=== PATIENT | male | born 1950 | race African-American/Black ===

== ENCOUNTER 2020-01-30 07:37 | Outpatient (REF) | payer MEDICARE, SELFPAY ==
[2020-01-30 10:32] LABS: Basophils Percent Auto 0.5 % (0-2); Eosinophils Percent Auto 0.9 % (0-4); Hematocrit 40.6 % (42-52); Hemoglobin 12.9 g/dl (14.0-18.0); Imm Gran Abs Auto 0.01 X10*3/uL (0.00-0.03); Imm Gran Pct Auto 0.2 % (0.0-0.4); Lymphocytes Absolute Auto 2.7 X10*3/uL (1.2-4.9); Lymphocytes Percent Auto 62.8 % (20-40); MANUAL DIFF FLAG SCAN; Mean Corpuscular HGB Conc 31.8 g/dl (31.0-36.0); Mean Corpuscular Hemoglobin 29.9 pg (27.0-33.0); Mean Corpuscular Volume 94.2 fL (80-98); Mean Platelet Volume 10.9 fL (9.4-12.4); Monocytes Absolute Auto 0.5 X10*3/uL (0.1-1.2); Monocytes Percent Auto 12.6 % (2-11); Platelet Count 199 X10*3/uL (160-400); Red Blood Count 4.31 X10*6/uL (4.60-5.80); Red Cell Distribution Width 13.5 % (11.0-16.0); SCAN SMEAR FLAG 1; White Blood Count 4.3 X10*3/uL (4.8-10.8)
[2020-01-30 11:00] LABS: SLIDE REVIEW VERIFIED
[2020-01-30 11:02] LABS: Alanine Aminotransferase 62 U/L (0-40); Albumin Level 3.9 g/dL (3.5-5.0); Alkaline Phosphatase 125 U/L (39-117); Anion Gap 12 (12-20); Aspartate Amino Transferase 47 U/L (5-37); Bilirubin Total 0.8 mg/dL (0.0-1.0); Blood Urea Nitrogen 18 mg/dL (9-16); Carbon Dioxide 28 mmol/L (22-29); Chloride 106 mmol/L (96-108); Cholesterol 135 mg/dL; Estimated Glomerular Filt Rate > 60; Glucose Fasting 75 mg/dL (60-99); HDL Cholesterol 47 mg/dL; LDL Cholesterol Calculated 71 mg/dl; Potassium 4.6 mmol/l (3.3-5.1); Sodium 141 mmol/L (135-145); Triglycerides 88 mg/dL
[2020-01-30 11:13] LABS: TSH reflex Free T4 2.24 mIU/mL (0.32-4.0)
[2020-01-30 11:46] LABS: Microalbum/Creatinine Ratio Ur 62.8 ug/mg cr
== END 2020-01-30 07:38 | disposition home or self-care (01) ==
LOC: HO.10HDL 07:37
PROVIDERS: Visit Provider Physician Assistant
DX: E11.9 Type 2 diabetes mellitus without complications (principal)
CPT/HCPCS: 36415; 80053; 80061; 82043; 84443; 85025

== ENCOUNTER 2020-10-20 08:55 | Outpatient (REF) | payer MEDICARE, SELFPAY ==
[2020-10-20 10:22] LABS: Hematocrit 39.1 % (42-52); Hemoglobin 12.6 g/dl (14.0-18.0); Mean Corpuscular HGB Conc 32.2 g/dl (31.0-36.0); Mean Corpuscular Hemoglobin 30.2 pg (27.0-33.0); Mean Corpuscular Volume 93.8 fL (80-98); Mean Platelet Volume 10.3 fL (9.4-12.4); Platelet Count 199 X10*3/uL (160-400); Red Blood Count 4.17 X10*6/uL (4.60-5.80); Red Cell Distribution Width 13.3 % (11.0-16.0); White Blood Count 4.6 X10*3/uL (4.8-10.8)
[2020-10-20 10:35] LABS: Alanine Aminotransferase 68 U/L (0-40); Alkaline Phosphatase 170 U/L (39-117); Anion Gap 14 (12-20); Aspartate Amino Transferase 51 U/L (5-37); Bilirubin Total 0.5 mg/dL (0.0-1.0); Blood Urea Nitrogen 19 mg/dL (9-16); Calcium 9.2 mg/dL (8.4-10.2); Carbon Dioxide 22 mmol/L (22-29); Chloride 108 mmol/L (96-108); Cholesterol 146 mg/dL; Estimated Glomerular Filt Rate > 60; Glucose Fasting 93 mg/dL (60-99); HDL Cholesterol 40 mg/dL; LDL Cholesterol Calculated 38 mg/dl; Potassium 4.3 mmol/L (3.3-5.1); Sodium 140 mmol/L (135-145); Total Protein 8.7 g/dL (6.5-8.0); Triglycerides 344 mg/dL
[2020-10-20 10:58] LABS: Prostate Specific Antigen Scr 9.97 ng/mL (<0.05-4.0); TSH reflex Free T4 1.65 uIU/mL (0.32-4.0)
[2020-10-20 13:17] LABS: Creatinine Urine 67.99 mg/dL; Microalbum/Creatinine Ratio Ur 163.2 ug/mg cr
== END 2020-10-20 08:56 | disposition home or self-care (01) ==
LOC: HO.10HDL 08:55
PROVIDERS: Visit Provider Physician Assistant
DX: Z12.5 Encounter for screening for malignant neoplasm of prostate (principal); E11.9 Type 2 diabetes mellitus without complications; R97.20 Elevated prostate specific antigen [PSA]; I10 Essential (primary) hypertension
CPT/HCPCS: 36415; 80053; 80061; 82043; 84153; 84443; 85027

== ENCOUNTER 2021-04-06 08:00 | Outpatient (REF) | payer MEDICARE, SELFPAY ==
[2021-04-06 10:17] LABS: Hematocrit 41.3 % (42.0-52.0); Hemoglobin 13.2 g/dl (14.0-18.0); Mean Corpuscular Hemoglobin 29.7 pg (27.0-33.0); Mean Platelet Volume 10.6 fL (9.4-12.4); Platelet Count 201 X10*3/uL (160-400); Red Blood Count 4.44 X10*6/uL (4.60-5.80); Red Cell Distribution Width 13.1 % (11.0-16.0)
[2021-04-06 10:49] LABS: Alanine Aminotransferase 78 U/L (0-40); Albumin Level 3.8 g/dL (3.5-5.0); Alkaline Phosphatase 144 U/L (39-117); Anion Gap 11 (12-20); Aspartate Amino Transferase 51 U/L (5-37); Bilirubin Total 0.3 mg/dL (0.0-1.0); Blood Urea Nitrogen 20 mg/dL (9-16); Calcium 9.3 mg/dL (8.4-10.2); Carbon Dioxide 28 mmol/L (22-29); Chloride 107 mmol/L (96-108); Cholesterol 140 mg/dL; Estimated Glomerular Filt Rate > 60; Glucose Fasting 94 mg/dL (60-99); HDL Cholesterol 38 mg/dL; LDL Cholesterol Calculated 63 mg/dl; Potassium 4.2 mmol/L (3.3-5.1); Sodium 142 mmol/L (135-145); Total Protein 8.3 g/dL (6.5-8.0); Triglycerides 199 mg/dL
[2021-04-06 10:53] LABS: TSH reflex Free T4 2.59 uIU/mL (0.32-4.0)
[2021-04-06 11:36] LABS: Prostate Specific Antigen Scr 12.26 ng/mL (<0.05-4.0)
== END 2021-04-06 08:01 | disposition home or self-care (01) ==
LOC: HO.10HDL 08:00
PROVIDERS: Visit Provider Physician Assistant
DX: Z12.5 Encounter for screening for malignant neoplasm of prostate (principal); E11.9 Type 2 diabetes mellitus without complications; I10 Essential (primary) hypertension; R97.20 Elevated prostate specific antigen [PSA]
CPT/HCPCS: 36415; 80053; 80061; 84153; 84443; 85027

== ENCOUNTER 2022-03-15 13:07 | Outpatient (REF) | payer MEDICARE, SELFPAY ==
[2022-03-15 14:33] LABS: Hematocrit 42.9 % (42.0-52.0); Hemoglobin 13.9 g/dl (14.0-18.0); Mean Corpuscular HGB Conc 32.4 g/dl (31.0-36.0); Mean Corpuscular Volume 92.7 fL (80.0-98.0); Mean Platelet Volume 10.4 fL (9.4-12.4); Platelet Count 195 X10*3/uL (160-400); Red Blood Count 4.63 X10*6/uL (4.60-5.80); Red Cell Distribution Width 13.2 % (11.0-16.0); White Blood Count 4.4 X10*3/uL (4.8-10.8)
[2022-03-15 14:42] LABS: Estimated Average Glucose 131 mg/dL; Hemoglobin A1c % 6.2 %
[2022-03-15 15:58] LABS: Creatinine Urine 290.79 mg/dL; Microalbum/Creatinine Ratio Ur 134.4 ug/mg cr
[2022-03-15 16:10] LABS: Potassium 4.3 mmol/L (3.3-5.1)
[2022-03-15 16:13] LABS: Sodium 141 mmol/L (135-145)
[2022-03-15 16:14] LABS: Alanine Aminotransferase 76 U/L (0-40); Alkaline Phosphatase 126 U/L (39-117); Anion Gap 15 (12-20); Aspartate Amino Transferase 67 U/L (5-37); Bilirubin Total 0.9 mg/dL (0.0-1.0); Blood Urea Nitrogen 23 mg/dL (9-16); Calcium 9.5 mg/dL (8.4-10.2); Carbon Dioxide 22 mmol/L (22-29); Chloride 108 mmol/L (96-108); Cholesterol 153 mg/dL; Estimated Glomerular Filt Rate 57; Glucose Fasting 129 mg/dL (60-99); HDL Cholesterol 47 mg/dL; LDL Cholesterol Calculated 91 mg/dl; TSH reflex Free T4 1.61 uIU/mL (0.32-4.0); Total Protein 8.4 g/dL (6.5-8.0); Triglycerides 78 mg/dL
== END 2022-03-15 13:08 | disposition home or self-care (01) ==
LOC: HO.10HDL 13:07
PROVIDERS: Visit Provider Physician Assistant
DX: I10 Essential (primary) hypertension (principal); E11.9 Type 2 diabetes mellitus without complications
CPT/HCPCS: 36415; 80053; 80061; 82043; 83036; 84443; 85027

== ENCOUNTER 2022-10-18 07:27 | Outpatient (AMB) | payer MEDICARE, SELFPAY ==
[2022-10-18 08:57] VITALS: BP 132/86; PULSE 54; O2SAT 98; BMI 33.1
--- NOTE | 2022-10-18 08:57 | A.OFFVIS_ITS ---
Intake Vital Signs 10/18/22 08:57 Height 5 ft 6 in Weight 205 lb BMI 33.1 BP 132/86 Blood Pressure Location Lt brachial Position Sitting Pulse 54 Pulse Source Pulse Oximeter Pulse Oximetry (%) 98 Oxygen Delivery Method Room Air Intake Visit Reasons: AWV Electrical Cad Designer Required: No Accompanied by: Self / Same As Patient Allergies No Known Allergies Allergy (Unknown, Verified 10/18/22 09:26) Medication List - Last Reconciled 10/18/22 by Jaron Palencia PA-C insulin glargine (Basaglar KwikPen U-100 Insulin) 15 units (0.15 mL) subcut DAILY 30 days pen needle, diabetic (BD Mague 2nd Gen Pen Needle) As directed pen needle, diabetic (BD Ultra-Fine Mague Pen Needle) As directed Do you need a note to return to daycare/school/sports/work: No HPI AWV HPI Details Patient is a 72 year male here today for annual wellness visit. Patient's past medical history significant for type 2 diabetes and hypertension. Today we discussed the chitina of care and end of life planning. Was given/ filled out a MOLST form today in office Discussed prostate cancer screening and his elevated PSA though still declines seeing urologist. Reports no urinary symptoms. Colon cancer screening-reports he has done a Cologuard though no records of this at this time. Vaccines-declines all vaccines Laboratory Tests 10/20/20 12/30/20 04/06/21 09:04 08:45 08:08 Fasting Glucose Hgb A1c (Clinic) 5.8 Hemoglobin A1c % Cholesterol LDL Cholesterol, C alc PSA Screen 9.97 H 12.26 H 03/15/22 03/15/22 13:20 13:20 Fasting Glucose 129 H Hgb A1c (Clinic) Hemoglobin A1c % 6.2 Cholesterol 153 LDL Cholesterol, C alc 91 PSA Screen HPI Comments History of Present Illness Details reviewed past medical history- yes reviewed surgical / hospitalization history- yes reviewed current medications- yes reviewed family history- yes home safety throw rugs? grab bars? raised toilet seat? working smoke detectors? activities of daily living difficulty bathing or showering? difficulty dressing? difficulty using the toilet? difficulty getting in and out of bed? difficulty walking? receives help from other person's with any of the above tasks? instrumental activities of daily living uses telephone - gets to place out of walking distance- go shopping for groceries- repairs own meals- does own minor home maintenance- does own laundry- does own housework- manages own money- currently takes medication- end of life planning discussed advanced directives- yes advanced directives on file? discussed wishes expressed in advanced directives. fall risk have you had any falls with injuries in the past year? have you had 2 or more falls in the past year? fall risk assessment: [facility] Medical History Liver cyst Surgical History Cardiology follow-up encounter Family History Father No problems noted. Mother Myocardial infarct Stroke Social History Housing: House Alcohol intake: never Patient Tobacco Use Status: Former Tobacco user e-Cigarette/Vaping Use: Never Used service: No Current occupational status: retired Questionnaire Medicare Wellness Checkup [age] What gender do you identify with?: male During the past 4 weeks, how much have you been bothered by emotional problems such as feeling anxious, depressed, irritable, sad or downhearted, and blue?: moderately During the past 4 weeks, has your physical & emotional health limited your social activities with family, friends, neighbors, or groups?: not at all During the past 4 weeks, how much bodily pain have you generally had?: mild pain During the past 4 weeks, was someone available to help you if you needed & wanted help?: yes, as much as I wanted Can you get to places out of walking distance without help? (For eg., can you travel alone on buses, taxis or drive your car?): Yes Can you go shopping for groceries or clothes without someone's help?: Yes Can you prepare your own meals?: Yes Can you do your housework without help?: Yes Because of any health problems, do you need the help of another person with your personal care needs such as eating, bathing, dressing or getting around the house?: No Can you handle your own money without help?: Yes During the past 4 weeks, how would you rate your health in general?: good During the past 4 weeks how have things been going for you?: pretty well Are you having difficulties driving your car?: no Do you always fasten your seat belt when you are in a car?: yes, usually During past 4 weeks, have you been bothered by the following: never: Falling or dizzy when standing up, Sexual problems? and Problems using the telephone? and seldom: Trouble eating well?, Teeth or denture problems? and Tiredness or fatigue? Have you fallen 2 or more times in the past year?: No Are you afraid of falling?: Yes Are you a smoker?: no During the past 4 weeks, how many drinks of wine, beer, or other alcoholic beverages did you have?: no alcohol at all Do you exercise for about 20 minutes 3 or more times a week?: yes, some of the time Have you been given information to help with the following?: yes: Hazards in your house that might hurt you? and yes: Keeping track of your medications? How often do you have trouble taking medicines the way you have been told to take them?: I always take medicine as prescribed How confident are you that you can control & manage most of your health problems?: very confident What is your race?: Black or Mini Mental State Exam (MMSE) Orientation What is the (year) (season) (date) (day) (month)?: year, season and date Where are we (state) (county) (town or city) (hospital) (floor)?: state and town or city Attention & Calculation (CHOOSE ONE) Spell WORLD backwards (DLROW): 5 letters Score Score: 10 Activity of Daily Living Bathing - sponge bath, tub bath or shower: receives no assistance (gets in/out by self, if usual bathing means Dressing - getting clothes from closets & drawers, including inner/outer garments & fasteners.: gets clothes & gets completely dressed without help Toileting - going to the 'toilet room' for urine/bowel elimination & cleaning self/arranging clothes: goes to toilet room, cleans self, arranges clothes without help Transfer: moves in & out of bed and chair without help (may use support object) Continence: controls urination/bowel movements completely by self Feeding: feeds self without help Total Score: 0 Information obtained from: patient Using telephone: independent Traveling: independent Shopping: independent Preparing meals: independent Housework: independent Taking medicine: independent Managing money: independent PHQ-9 Over the last 2 weeks, how often have you been bothered by any of the following problems? 1. Little interest or pleasure in doing things: not at all 2. Feeling down, depressed, or hopeless: several days 3. Trouble falling or staying asleep, or sleeping too much: not at all 4. Feeling tired or having little energy: several days 5. Poor appetite or overeating: not at all 6. Feeling bad about yourself - or that you are a failure or have let yourself or your family down: several days 7. Trouble concentrating on things, such as reading the newspaper or watching television: not at all 8. Moving or speaking so slowly that other people could have noticed. Or the opposite - being so fidgety or restless that you have been moving around a lot more than usual: not at all 9. Thoughts that you would be better off or of hurting yourself in some way: not at all Total score: 3 Depression Screening Interpretation: Positive 18542 - PHQ-9 Billing: Yes Source: Developed by Drs. Benigno Davis, Tequila Ash, Ben Cxo and colleagues, with an educational dash from [employer]. Thrive Questionnaire Date Thrive assessed: 09/21/20 I am a: Patient What is your living situation today?: I have a steady place to live Within the past 12 months, did the food you bought not last and you didn't have the money to get more?: Never true Within the past 12 months, did you worry whether your food would run out before you got money to buy more?: Never true Do you have trouble paying for medicines?: No Do you have trouble getting transportation to medical appointments?: No Do you have trouble paying your heating and electricity bill?: No Do you have trouble taking care of your child, family member or friend?: No Do you have trouble with day-to-day activities such as bathing, preparing meals, shopping, managing finances, etc.?: No Are you currently unemployed and looking for a job?: No Are you interested in more education?: No Currently or been in a relationship where the following occur: no concerns reported DIANNA-7 AMB Questionnaire DIANNA-7 Date DIANNA - 7 assessed: 12/30/20 Feeling nervous, anxious, or on edge: 0 = Not at all Not being able to stop or control worryin = Not at all Worrying too much about different things: 0 = Not at all Trouble relaxin = Not at all Being so restless that it is hard to sit still: 0 = Not at all Becoming easily annoyed or irritable: 0 = Not at all Feeling afraid as if something awful might happen: 0 = Not at all Total DIANNA-7 score (0-4 normal; 5-9 mild; 10-14 moderate; 15-21 severe): 0 Source: Developed by Drs. Benigno Davis, Tequila Ash, Ben Cox and colleagues, with an educational dash from [employer]. DIANNA-7 Assessment Billing DIANNA-7 Assessment Tool: DIANNA-7 Assessment 07888 PHQ-2/PHQ-9 PHQ-2 Over the last 2 weeks, how often have you been bothered by any of the following problems? 1. Little interest or pleasure in doing things: not at all 2. Feeling down, depressed, or hopeless: several days Total score: 1 If score is 3 or greater, continue 3. Trouble falling or staying asleep, or sleeping too much: not at all 4. Feeling tired or having little energy: several days 5. Poor appetite or overeating: not at all 6. Feeling bad about yourself - or that you are a failure or have let yourself or your family down: several days 7. Trouble concentrating on things, such as reading the newspaper or watching television: not at all 8. Moving or speaking so slowly that other people could have noticed. Or the opposite - being so fidgety or restless that you have been moving around a lot more than usual: not at all 9. Thoughts that you would be better off or of hurting yourself in some way: not at all Total score: 3 0-4 None-Minimal, 5-9 Mild, 10-14 Moderate, 15-19 Moderately Severe, 20-27 Severe Source: Developed by Drs. Benigno Davis, Tequila Ash, Ben Cox and colleagues, with an educational dash from [employer]. Physical Exam Vital Signs: Last Vital Signs Pulse 54 10/18/22 08:57 BP 132/86 10/18/22 08:57 Pulse Ox 98 10/18/22 08:57 Oxygen Delivery Method Room Air 10/18/22 08:57 BMI result Body Mass Index 33.1 HEENT Other: hearing screening whisper test- pass Eyes Other: vision screening- 20/20 OS OD OU Other: urinary incontinence? No Neuro Other: balance Romberg- normal tandem walk test- able walk-in turned test- able rise from sit to stand- within 2 seconds Results AMB Hemoglobin A1c AMB Hemoglobin A1c 6.3 % Last Edit by Criselda Pizano on 10/18/22 09:28 Results Reviewed Results Reviewed: Laboratory Last Values Hgb A1c (Clinic) 6.3 % (4.0-6.0) H 10/18/22 09:15 Assessment & Plan Assessment & Plan (1) Encounter for initial annual wellness visit (AWV) in Medicare patient: Code(s): Z00.00 - Encounter for general adult medical examination without abnormal findings (2) Screening PSA (prostate specific antigen): Code(s): Z12.5 - Encounter for screening for malignant neoplasm of prostate Orders: Orders Comprehensive [place]. Panel Fast Today E11.9 - Type 2 diabetes mellitus without complications Lipid Panel Today E11.9 - Type 2 diabetes mellitus without complications Prostate Specific Antigen Scr Today Z12.5 - Encounter for screening for malignant neoplasm of prostate Microalbumin, Random (w Creat) Today E11.9 - Type 2 diabetes mellitus without complications Complete Blood Count no Diff Today E11.9 - Type 2 diabetes mellitus without complications AMB Hemoglobin A1c Today E11.9 - Type 2 diabetes mellitus without complications Quality Reporting (2020) Depression/Bipolar (159/160/161/177) PHQ-9: Total score: 3 Coding Level of Care Code Medicare First (G0438) Diagnoses Encounter for initial annual wellness visit (AWV) in Medicare patient Z00.00 Screening PSA (prostate specific antigen) Z12.5 CPT Codes Advance Care Planning - Time spent: 1-15 minutes, not on file ([id number]) Additional Codes DIANNA-7 Assessment Billing - DIANNA-7 Assessment Tool: DIANNA-7 Assessment 00566 ([id number]) Advance Care Planning Advance Care Planning discussion: Exists, not on file Date of discussion: 10/18/22 Forms completed: [place] Time spent: 1-15 minutes, not on file
== END 2022-10-18 09:55 | disposition home or self-care (01) ==
LOC: HO.HMGH 07:27
PROVIDERS: PCP Physician Assistant; Visit Provider Physician Assistant
DX: Z00.00 Encounter for general adult medical examination without abnormal findings (principal); Z12.5 Encounter for screening for malignant neoplasm of prostate; E11.9 Type 2 diabetes mellitus without complications
CPT/HCPCS: 1124F; 83036; G0438

== ENCOUNTER 2022-10-18 10:00 | Outpatient (REF) | payer MEDICARE, SELFPAY ==
[2022-10-18 11:13] LABS: Hematocrit 43.8 % (42.0-52.0); Hemoglobin 13.9 g/dl (14.0-18.0); Mean Corpuscular HGB Conc 31.7 g/dl (31.0-36.0); Mean Corpuscular Hemoglobin 29.6 pg (27.0-33.0); Mean Corpuscular Volume 93.2 fL (80.0-98.0); Mean Platelet Volume 10.1 fL (9.4-12.4); NRBC Pct Auto 0.3 /100WBC (0.0-0.2); Platelet Count 206 X10*3/uL (160-400); Red Cell Distribution Width 12.9 % (11.0-16.0); White Blood Count 5.8 X10*3/uL (4.8-10.8)
[2022-10-18 11:30] LABS: Alanine Aminotransferase 85 U/L (0-40); Alkaline Phosphatase 129 U/L (39-117); Anion Gap 10 (12-20); Aspartate Amino Transferase 57 U/L (5-37); Bilirubin Total 0.5 mg/dL (0.0-1.0); Blood Urea Nitrogen 19 mg/dL (9-16); Calcium 10.1 mg/dL (8.4-10.2); Carbon Dioxide 29 mmol/L (22-29); Chloride 105 mmol/L (96-108); Cholesterol 140 mg/dL; Estimated Glomerular Filt Rate > 60; Glucose Fasting 117 mg/dL (60-99); HDL Cholesterol 43 mg/dL; LDL Cholesterol Calculated 73 mg/dl; Potassium 4.3 mmol/L (3.3-5.1); Sodium 140 mmol/L (135-145); Total Protein 8.7 g/dL (6.5-8.0); Triglycerides 120 mg/dL
[2022-10-18 11:41] LABS: Prostate Specific Antigen Scr 19.92 ng/mL (<0.05-4.0)
[2022-10-18 11:53] LABS: Creatinine Urine 122.98 mg/dL; Microalbum/Creatinine Ratio Ur 156.9 ug/mg cr
== END 2022-10-18 10:01 | disposition home or self-care (01) ==
LOC: HO.10HDL 10:00
PROVIDERS: Visit Provider Physician Assistant
DX: Z12.5 Encounter for screening for malignant neoplasm of prostate (principal); E11.9 Type 2 diabetes mellitus without complications
CPT/HCPCS: 36415; 80053; 80061; 82043; 84153; 85027

== ENCOUNTER 2023-09-12 09:08 | Outpatient (REF) | payer MEDICARE, SELFPAY ==
[2023-09-12 11:09] LABS: Hematocrit 40.3 % (42.0-52.0); Hemoglobin 13.6 g/dl (14.0-18.0); Mean Corpuscular HGB Conc 33.7 g/dl (31.0-36.0); Mean Corpuscular Hemoglobin 30.6 pg (27.0-33.0); Mean Corpuscular Volume 90.6 fL (80.0-98.0); Mean Platelet Volume 9.7 fL (9.4-12.4); Platelet Count 188 X10*3/uL (160-400); Red Blood Count 4.45 X10*6/uL (4.60-5.80); Red Cell Distribution Width 13.2 % (11.0-16.0); White Blood Count 4.1 X10*3/uL (4.8-10.8)
[2023-09-12 12:01] LABS: Prostate Specific Antigen Scr 33.13 ng/mL (<0.05-4.0)
[2023-09-12 12:05] LABS: Microalbum/Creatinine Ratio Ur 39.2 ug/mg cr (<30)
[2023-09-12 12:22] LABS: Alanine Aminotransferase 60 U/L (0-40); Alkaline Phosphatase 97 U/L (39-117); Anion Gap 13 (12-20); Aspartate Amino Transferase 50 U/L (5-37); Bilirubin Total 0.7 mg/dL (0.0-1.0); Blood Urea Nitrogen 21 mg/dL (9-16); Calcium 9.7 mg/dL (8.4-10.2); Carbon Dioxide 24 mmol/L (22-29); Chloride 109 mmol/L (96-108); Cholesterol 143 mg/dL (<200); Estimated Glomerular Filt Rate > 60; Glucose Fasting 104 mg/dL (60-99); HDL Cholesterol 47 mg/dL (>40); LDL Cholesterol Calculated 79 mg/dL (<100); Sodium 142 mmol/L (135-145); Total Protein 8.2 g/dL (6.5-8.0); Triglycerides 87 mg/dL (<150)
== END 2023-09-12 09:09 | disposition home or self-care (01) ==
LOC: HO.10HDL 09:08
PROVIDERS: Visit Provider Physician Assistant
DX: I10 Essential (primary) hypertension (principal); E11.9 Type 2 diabetes mellitus without complications; Z12.5 Encounter for screening for malignant neoplasm of prostate
CPT/HCPCS: 36415; 80053; 80061; 82043; 82570; 84153; 85027

== ENCOUNTER 2024-06-25 07:40 | Outpatient (REF) | payer MEDICARE, SELFPAY ==
[2024-06-25 10:28] LABS: Hematocrit 42.3 % (42.0-52.0); Hemoglobin 13.5 g/dl (14.0-18.0); Mean Corpuscular HGB Conc 31.9 g/dl (31.0-36.0); Mean Corpuscular Hemoglobin 29.7 pg (27.0-33.0); Mean Corpuscular Volume 93.2 fL (80.0-98.0); Mean Platelet Volume 10.5 fL (9.4-12.4); Platelet Count 224 X10*3/uL (160-400); Red Blood Count 4.54 X10*6/uL (4.60-5.80); White Blood Count 4.8 X10*3/uL (4.8-10.8)
[2024-06-25 10:34] LABS: Estimated Average Glucose 128 mg/dL; Hemoglobin A1c % 6.1 % (<6.0); Total Hemoglobin (HGBA1C) 3722.2758 umol/L
[2024-06-25 11:15] LABS: Alanine Aminotransferase 70 U/L (0-40); Albumin Level 3.8 g/dL (3.5-5.0); Alkaline Phosphatase 128 U/L (39-117); Anion Gap 12 (12-20); Aspartate Amino Transferase 57 U/L (5-37); Bilirubin Total 0.6 mg/dL (0.0-1.0); Blood Urea Nitrogen 27 mg/dL (9-16); Calcium 9.4 mg/dL (8.4-10.2); Carbon Dioxide 26 mmol/L (22-29); Chloride 107 mmol/L (96-108); Cholesterol 137 mg/dL (<200); Estimated Glomerular Filt Rate 60; Glucose Fasting 109 mg/dL (60-99); HDL Cholesterol 52 mg/dL (>40); LDL Cholesterol Calculated 69 mg/dL (<100); Potassium 4.3 mmol/L (3.3-5.1); Sodium 141 mmol/L (135-145); Total Protein 8.1 g/dL (6.5-8.0); Triglycerides 82 mg/dL (<150)
[2024-06-25 11:43] LABS: Creatinine Urine 205.56 mg/dL; Microalbum/Creatinine Ratio Ur 58.3 ug/mg cr (<30)
[2024-06-25 11:59] LABS: Prostate Specific Antigen Scr 40.71 ng/mL (<0.05-4.0)
== END 2024-06-25 07:41 | disposition home or self-care (01) ==
LOC: HO.10HDL 07:40
PROVIDERS: Visit Provider Physician Assistant
DX: E11.9 Type 2 diabetes mellitus without complications (principal); I10 Essential (primary) hypertension; Z12.5 Encounter for screening for malignant neoplasm of prostate
CPT/HCPCS: 36415; 80053; 80061; 82043; 82570; 83036; 84153; 85027

== ENCOUNTER 2024-08-01 21:46 | Emergency (ER) | payer MEDICARE, SELFPAY ==
--- NOTE | ~2024-08-01 | CT_ITS ---
CLINICAL HISTORY: fall, occip head strike etoh CT head without contrast Comparison: None Findings: Motion artifact degrades some of the provided images limiting interpretation. No intra-axial mass, midline shift, hydrocephalus, or acute hemorrhage. Nonspecific white matter hypodensity is present with mild volume loss. The visualized paranasal sinuses and mastoid air cells are normal. The orbits are within normal limits. There is no acute fracture. IMPRESSION: 1. No acute intracranial findings. This document has been electronically signed by: Femi Lucero MD, PHD on 08/02/2024 00:51:40
--- NOTE | ~2024-08-01 | CT_ITS ---
CLINICAL HISTORY: fall, etoh. CT cervical spine without contrast Comparison: None Findings: Vertebral alignment is within normal limits. Degenerative changes in the cervical spine are mild, more moderate at C5-C6 where there is disc height loss, endplate sclerosis and disc osteophyte complex formation. No acute fractures or dislocations. No acute findings on limited view of the intracranial contents. Soft tissues of the neck are normal. Lung apices are clear. Atherosclerotic carotid bulb calcifications are noted. IMPRESSION: No acute findings. This document has been electronically signed by: Femi Lucero MD, PHD on 08/02/2024 00:44:01
[2024-08-01 21:52] VITALS: BP 184/80; PULSE 110; O2SAT 99
[2024-08-01 21:54] VITALS: BP 163/98; PULSE 91; RESP 20; TEMP 36.1; O2SAT 98; BMI 25.9
--- NOTE | 2024-08-01 22:24 | ED.GENADULT ---
HPI - General Adult General Chief complaint: Wound/Laceration Stated complaint: intoxicated/ confused , lacceration back of head Time Seen by Provider: 08/01/24 22:18 Related Data Previous Rx's ?Medication ?Instructions ?Recorded pen needle, diabetic 32 gauge x #50 ea 06/07/22 (BD Mague 2nd Gen Pen Needle) pen needle, diabetic 32 gauge x #50 ea 10/18/22 (BD Ultra-Fine Mague Pen Needle) insulin glargine 100 unit/mL (3 15 unit (0.15 mL) subcut DAILY 30 09/19/23 mL) subcutaneous pen (Basaglar days #15 mL KwikPen U-100 Insulin) Allergies Allergy/AdvReac Type Severity Reaction Status Date / Time No Known Allergies Allergy Unknown Verified 08/01/24 21:58 [facility] Past Medical History Medical History Liver cyst Surgical History Cardiology follow-up encounter Family History Family History Father No problems noted. Mother Myocardial infarct Stroke Social History Social History Housing: House Alcohol intake: never Patient Tobacco Use Status: Former Tobacco user e-Cigarette/Vaping Use: Never Used Advance Directives: No Advance Directives Information Provided: Yes service: No Current occupational status: retired Physical Exam ED Vital Signs: Vital Signs - 24 hr 08/01/24 21:54 Temperature 97.0 F Pulse Rate 91 Respiratory Rate 20 Blood Pressure 163/98 H Pulse Oximetry 98 Oxygen Delivery Method Room Air BMI result Body Mass Index 25.9 Medical Decision Making Medical Decision Making MDM Narrative: 74-year-old male appears mildly intoxicated appears to have fallen there is an abrasion of the occipital scalp with no repairable laceration. CT head and cervical spine without acute traumatic injuries. Remainder of exam without traumatic injuries identified. Given the patient's age and alcohol intoxication may need a little bit of time to sober up before safely discharged. 0200 charge at this time Discharge Plan Discharge Clinical Impression: Abrasion, Concussion Patient Disposition: Home, Self-Care Instructions: Concussion (ED) Additional Instructions: DISCHARGE DIAGNOSES: Scalp abrasion, fall likely concussion HISTORY OF PRESENTATION: ?Fall striking the back of the head EMERGENCY DEPARTMENT COURSE,TESTS, TREATMENTS: While in the ED today CT imaging of your head and cervical spine and you were examined thoroughly no significant traumatic injuries were identified you do have a hematoma of the scalp and an abrasion in the back of the scalp this did not require repair. You can put an ice pack on this take ibuprofen or Tylenol as needed DISCHARGE MEDICATIONS: ?[We have made no changes to your regular medication regimen] FOLLOW-UP: ?Call your primary or general physician soon as possible to discuss your symptoms, your ED visit and to discuss follow up plans Call your primary doctor for follow up INSTRUCTIONS ?& RETURN PRECAUTIONS: If any symptoms change first call your primary physician, if it is after-hours your primary doctors office should have a provider executive consultant you can speak with. If the symptoms are severe or very concerning to you then call 911 or return to the ED. Loco Almonte MD Emergency Physician [facility] Prescriptions: No Action (DME) pen needle, diabetic [BD Mague 2nd Gen Pen Needle] 32 gauge x 5/32 needle See Rx Instructions .ROUTE .MEDSUPPLY Qty: 50 6RF Rx Instructions: As directed (DME) pen needle, diabetic [BD Ultra-Fine Mague Pen Needle] 32 gauge x 5/32 needle See Rx Instructions .ROUTE .MEDSUPPLY Qty: 50 6RF Rx Instructions: As directed insulin glargine [Basaglar KwikPen U-100 Insulin] 100 unit/mL (3 mL) insulin pen 15 unit subcut DAILY 30 Days Qty: 15 6RF Print Language: Sinhala
[2024-08-02 02:37] VITALS: BP 163/82; PULSE 75; RESP 16; TEMP 36.6; O2SAT 98
--- NOTE | 2024-08-02 05:29 | PC.NURSE ---
pt resting comfortably on the stretcher, awake and alert but constantly talking to self. ambulated to the bathroom independently. slightly unsteady gait, pt states he is baseline. requested water. pt is diabetic, POC taken 104.
[2024-08-02 05:33] LABS: Glucose, Whole Blood 104 mg/dL (60-115)
[2024-08-02] MEDS: Diphth,Pertus(ACell),Tet Adult 0.5 ML SYRINGE IM (05:39)
[2024-08-02 06:28] VITALS: BP 170/96; PULSE 82; RESP 16; TEMP 36.3; O2SAT 98
[2024-08-02 06:46] VITALS: BP 170/96; PULSE 82; RESP 16; TEMP 36.3; O2SAT 98
== END 2024-08-02 06:47 | disposition home or self-care (01) ==
PROVIDERS: Emergency Provider Emergency Medicine; PCP Physician Assistant
DX: S06.0X0A Concussion without loss of consciousness, initial encounter (principal); S00.91XA Abrasion of unspecified part of head, initial encounter; R41.0 Disorientation, unspecified; F10.129 Alcohol abuse with intoxication, unspecified; R51.9 Headache, unspecified; Y90.9 Presence of alcohol in blood, level not specified; W19.XXXA Unspecified fall, initial encounter; Y93.9 Activity, unspecified; Y92.9 Unspecified place or not applicable; Y99.8 Other external cause status; Z87.891 Personal history of nicotine dependence; Z79.899 Other long term (current) drug therapy
CPT/HCPCS: 70450; 72125; 82947; 90715; 99283

== ENCOUNTER → 2024-08-01 22:57 | Outpatient (BNV) | payer MEDICARE, SELFPAY | PROVIDERS: Emergency Provider Emergency Medicine; PCP Physician Assistant; Visit Provider General Practice | DX: F10.90 Alcohol use, unspecified, uncomplicated (principal); S00.00XA Unspecified superficial injury of scalp, initial encounter; W19.XXXA Unspecified fall, initial encounter | CPT/HCPCS: 70450; 72125 ==

== ENCOUNTER 2024-08-02 22:18 | Inpatient (IN) | payer MEDICARE, SELFPAY ==
--- NOTE | ~2024-08-02 | CT_ITS ---
CLINICAL HISTORY: Headache post fall CT Head WO Contrast COMPARISON: CT/SR - CT HEAD/BRAIN WO IV CON - 08/01/24 23:07 EDT FINDINGS: No acute intracranial hemorrhage. No evidence of acute infarction. Diffuse cortical volume loss. Nonspecific white matter hypodensities, most commonly associated with chronic microangiopathic changes. No mass-effect or midline shift. No hydrocephalus. Visualized orbits are normal. Clear paranasal sinuses. Clear mastoid air cells. No acute fracture. Mild upper posterior scalp soft tissue swelling. IMPRESSION: No acute intracranial findings. Scalp soft tissue injury. Nonemergent/incidental findings in the report. This document has been electronically signed by: Lalo Bañuelos MD on 08/03/2024 04:47:34
--- NOTE | ~2024-08-02 | XR_ITS ---
CLINICAL HISTORY: cp Chest X-ray, 1 View COMPARISON: None FINDINGS: No consolidation. No pleural effusion. No pneumothorax. No cardiomegaly. No acute fracture. IMPRESSION: No acute findings. This document has been electronically signed by: Lalo Bañuelos MD on 08/03/2024 04:24:43
--- NOTE | ~2024-08-02 | CT_ITS ---
CLINICAL HISTORY: Flank pain CT Abdomen and Pelvis WO Contrast COMPARISON: None FINDINGS: Detail limited by artifacts. Cardiomegaly. Diffusely hypodense liver consistent with hepatic steatosis. Normal spleen. Right renal cyst. Nonobstructing right renal calculus. No visible ureteral calculi. Hyperdense hemorrhagic left renal cyst. No hydronephrosis. Normal adrenal glands. Normal pancreas. Cholelithiasis. No CT evidence of acute cholecystitis. No biliary dilation. No evidence of bowel obstruction or colitis. The appendix is not identified, however, no secondary signs of acute appendicitis. Diffuse bladder wall thickening. Mildly enlarged prostate. No ascites. No pneumoperitoneum. No lymphadenopathy. No acute fracture. Degenerative changes in the spine. No abdominal aortic aneurysm. Atherosclerosis. IMPRESSION: Possible cystitis. Nonemergent/incidental findings above. This document has been electronically signed by: Lalo Bañuelos MD on 08/03/2024 04:51:58
[2024-08-02 22:23] VITALS: BP 118/73; PULSE 101; RESP 18; TEMP 36.9; O2SAT 98; BMI 29.3
[2024-08-02 22:39] VITALS: BP 143/76; PULSE 92; RESP 16; TEMP 36.4; O2SAT 98
[2024-08-03] VITALS (10 sets, daily range): BP systolic 140–170; BP diastolic 72–88; PULSE 57–75; RESP 12–20; TEMP 36–37.1; O2SAT 94–98; BMI 22.5
[2024-08-03 02:32] LABS: MANUAL DIFF FLAG NO
[2024-08-03 02:34] LABS: Basophils Percent Auto 0.1 % (0-2); Hematocrit 37.1 % (42.0-52.0); Hemoglobin 12.7 g/dl (14.0-18.0); Imm Gran Abs Auto 0.04 X10*3/uL (0.00-0.03); Imm Gran Pct Auto 0.5 % (0.0-0.4); Lymphocytes Absolute Auto 1.1 X10*3/uL (1.2-4.9); Lymphocytes Percent Auto 14.2 % (20-40); Mean Corpuscular HGB Conc 34.2 g/dl (31.0-36.0); Mean Corpuscular Hemoglobin 30.5 pg (27.0-33.0); Mean Platelet Volume 9.6 fL (9.4-12.4); Monocytes Absolute Auto 0.4 X10*3/uL (0.1-1.2); Monocytes Percent Auto 5.8 % (2-11); Neutrophils Percent Auto 79.4 % (45-73); Platelet Count 161 X10*3/uL (160-400); Red Blood Count 4.17 X10*6/uL (4.60-5.80); Red Cell Distribution Width 13.2 % (11.0-16.0); White Blood Count 7.6 X10*3/uL (4.8-10.8)
[2024-08-03 02:55] LABS: Ethanol < 10 mg/dL
--- NOTE | 2024-08-03 02:57 | ED.GENADULT ---
HPI - General Adult General Chief complaint: Altered Mental Status Stated complaint: DIZZY, CONFUSED DISCHARGED YESTERDAY Time Seen by Provider: 08/03/24 02:23 Source: patient and EMS Mode of arrival: EMS Limitations: altered mental status History of Present Illness ED Provider: HPI narrative: Patient's history of hypertension and diabetes was seen here yesterday for fall head CT and cervical spine CT was negative usually independent had a physical exam done in 10/23 with MMSE of 10 independent was seen here yesterday after the fall, today patient was found confused wandering on the street bystander called the EMS patient is oriented to place and person will not able to give details via was walking on the street patient noticed to be in unkept condition complaining of back pain and off and on dizziness Related Data Previous Rx's ?Medication ?Instructions ?Recorded pen needle, diabetic 32 gauge x #50 ea 06/07/2232 (BD Mague 2nd Gen Pen Needle) pen needle, diabetic 32 gauge x #50 ea 10/18/2232 (BD Ultra-Fine Mague Pen Needle) insulin glargine 100 unit/mL (3 15 unit (0.15 mL) subcut DAILY 30 09/19/23 mL) subcutaneous pen (Basaglar days #15 mL KwikPen U-100 Insulin) Allergies Allergy/AdvReac Type Severity Reaction Status Date / Time No Known Allergies Allergy Unknown Verified 08/02/24 22:26 Review of Systems Review of Systems: Yes all other systems are reviewed and are negative [facility] Past Medical History Medical History Liver cyst Surgical History Cardiology follow-up encounter Family History Family History Father No problems noted. Mother Myocardial infarct Stroke Social History Social History Housing: House Alcohol intake: never Patient Tobacco Use Status: Former Tobacco user Smoked in Last 30 Days: No e-Cigarette/Vaping Use: Never Used Use of substances other than those prescribed or required for medical reasons: No Advance Directives: No Advance Directives Information Provided: Yes Do you have a plan to hurt others: No Plan Nutrition Risks: Dental problems service: No Current occupational status: retired Physical Exam ED Vital Signs: Vital Signs - 24 hr 08/02/24 22:23 08/02/24 22:39 08/03/24 00:28 Temperature 98.4 F 97.6 F 97.5 F Pulse Rate 101 H 92 75 Respiratory Rate 18 16 16 Blood Pressure 118/73 143/76 H 158/88 H Pulse Oximetry 98 98 96 Oxygen Delivery Method Room Air Room Air Room Air 08/03/24 02:00 08/03/24 05:33 Temperature 97.6 F 97.7 F Pulse Rate 70 63 Respiratory Rate 17 14 Blood Pressure 166/87 H 148/78 H Pulse Oximetry 94 97 Oxygen Delivery Method Room Air Room Air BMI result Body Mass Index 29.3 Appearance: Alert. Oriented X2-3 slow to speak. No acute distress. Eyes: PERRLA, No Nystagmus ENT: Pharynx normal. Oral Mucosa moist Neck: Normal inspection. Neck supple. CVS: Normal heart rate and rhythm. Pulses normal. Respiratory: No respiratory distress. Equal air entry bilateral, no wheezing/rales/rhonchi Abdomen: Soft and nontender. Bowel sounds are present, no mass palpable, no CVA tenderness Skin: Skin warm and dry. Normal skin color. Normal skin turgor. Extremities: No lower extremity edema. No calf tenderness back: Diffuse tenderness lumbar spine area Neuro: Oriented X 2-3. No motor deficit. No sensory deficit.No cerebellar signs , cranial nerves II-XII intact guarded gait Medications Administered Generic Name Dose Route Start Last Admin Trade Name Freq PRN Reason Stop Dose Admin Enoxaparin Sodium 30 mg 08/03/24 06:00 08/03/24 07:00 Enoxaparin Sodium 30 Mg/0.3 Ml Syringe SUBCUT 30 mg Q24H WEI Administration Sodium Chloride 3 ml 08/03/24 08:00 08/03/24 07:00 0.9 % Sodium Chloride Flush 3 Ml Syringe IVFLUSH Not Given QSHIFT WEI Discontinued Medications Generic Name Dose Route Start Last Admin Trade Name Freq PRN Reason Stop Dose Admin Sodium Chloride 1,000 mls @ 999 mls/hr 08/03/24 03:15 08/03/24 06:22 Ns IV 08/03/24 04:15 Infused .Q1H1M ONE Infusion Sodium Chloride 1,000 mls @ 999 mls/hr 08/03/24 05:07 08/03/24 06:21 Ns IV 08/03/24 06:07 999 mls/hr .Q1H1M ONE Administration Thiamine HCl 200 mg/ Sodium 102 mls @ 204 mls/hr 08/03/24 06:00 08/03/24 07:14 Chloride IV 08/03/24 06:29 Infused ONCE ONE Infusion Medical Decision Making Medical Decision Making [facility] Narrative: Patient with increased confusion noted to be in ASHVIN creatinine increased to 3.2 from 1.19 in 06/25 CT scan of the abdomen negative for obstructive uropathy. Urinary also negative will admit patient for ASHVIN in confusion repeat CT scan of the head also negative for bleed Differential Diagnosis Differential Diagnoses: The differential diagnosis associated with the presentation includes Metabolic encephalopathy/ASHVIN/subdural hematoma/dementia Admission/Observation Consideration of admission/observation: Escalation of care including admission/observation considered Consult Healthcare Provider Management of the patient was discussed with: Hospitalist Lab Data [facility] Lab Attestation statement: I reviewed the patient's lab results. 08/03/24 02:29 08/03/24 02:29 Labs: Lab Results 08/03/24 08/03/24 08/03/24 Range/Units 02:28 02:29 04:20 WBC 7.6 (4.8-10.8) X10*3/uL RBC 4.17 L (4.60-5.80) X10*6/uL Hgb 12.7 L (14.0-18.0) g/dl Hct 37.1 L (42.0-52.0) % MCV 89.0 (80.0-98.0) fL MCH 30.5 (27.0-33.0) pg MCHC 34.2 (31.0-36.0) g/dl RDW 13.2 (11.0-16.0) % Plt Count 161 D (160-400) X10*3/uL MPV 9.6 (9.4-12.4) fL Immature Gran % (Auto) 0.5 H (0.0-0.4) % Neut % (Auto) 79.4 H (45-73) % Lymph % (Auto) 14.2 L (20-40) % [place] % (Auto) 5.8 (2-11) % Eos % (Auto) 0.0 (0-4) % Baso % (Auto) 0.1 (0-2) % Lymph # (Auto) 1.1 L (1.2-4.9) X10*3/uL [place] # (Auto) 0.4 (0.1-1.2) X10*3/uL Eos # (Auto) 0.0 (0.0-0.4) X10*3/uL Baso # (Auto) 0.0 (0.0-0.2) X10*3/uL Abs Immat Gran (auto) 0.04 H (0.00-0.03) X10*3/uL Absolute Neuts (auto) 6.0 (2.0-8.3) x10*3/uL Absolute Nucleated RBC 0.000 (0.0-0.012) X10*3/uL Nucleated RBC % (auto) 0.0 (0.0-0.2) /100WBC Sodium 143 (135-145) mmol/L Potassium 4.4 (3.3-5.1) mmol/L Chloride 109 H (96-108) mmol/L Carbon Dioxide 19 L (22-29) mmol/L Anion Gap 19 (12-20) BUN 56 H (9-16) mg/dL Creatinine 3.20 H (0.5-1.4) mg/dL Estim Creat Clear Calc 21.0 Estimated GFR 19 Random Glucose 107 (60-115) mg/dL Lactic Acid 1.9 (0.5-2.0) mmol/L Calcium 9.5 (8.4-10.2) mg/dL Total Bilirubin 0.9 (0.0-1.0) mg/dL AST 421 H (5-37) U/L ALT 106 H (0-40) U/L Alkaline Phosphatase 69 (39-117) U/L Troponin I High Sens 79.5 H (<3.5-35.0) ng/L Total Protein 8.1 H (6.5-8.0) g/dL Albumin 4.1 (3.5-5.0) g/dL Urine Color Urine Appearance Urine pH (5.0-9.0) Ur Specific [place] (1.005-1.025) Urine Protein (Neg-Trace) mg/dL Urine Glucose (UA) (Negative) mg/dL Urine Ketones (Negative) mg/dL Urine Blood (Negative) Urine Nitrite (Negative) Ur Leukocyte Esterase (Negative) Urine RBC (0-2) /HPF Urine WBC (0-5) /HPF Ur Squamous Epith Cells (0-2) /HPF Urine Bacteria (None Seen) Hyaline Casts (0-2) /LPF Granular Casts Ethyl Alcohol < 10 mg/dL 08/03/24 Range/Units 05:27 WBC (4.8-10.8) X10*3/uL RBC (4.60-5.80) X10*6/uL Hgb (14.0-18.0) g/dl Hct (42.0-52.0) % MCV (80.0-98.0) fL MCH (27.0-33.0) pg MCHC (31.0-36.0) g/dl RDW (11.0-16.0) % Plt Count (160-400) X10*3/uL MPV (9.4-12.4) fL Immature Gran % (Auto) (0.0-0.4) % Neut % (Auto) (45-73) % Lymph % (Auto) (20-40) % [place] % (Auto) (2-11) % Eos % (Auto) (0-4) % Baso % (Auto) (0-2) % Lymph # (Auto) (1.2-4.9) X10*3/uL [place] # (Auto) (0.1-1.2) X10*3/uL Eos # (Auto) (0.0-0.4) X10*3/uL Baso # (Auto) (0.0-0.2) X10*3/uL Abs Immat Gran (auto) (0.00-0.03) X10*3/uL Absolute Neuts (auto) (2.0-8.3) x10*3/uL Absolute Nucleated RBC (0.0-0.012) X10*3/uL Nucleated RBC % (auto) (0.0-0.2) /100WBC Sodium (135-145) mmol/L Potassium (3.3-5.1) mmol/L Chloride (96-108) mmol/L Carbon Dioxide (22-29) mmol/L Anion Gap (12-20) BUN (9-16) mg/dL Creatinine (0.5-1.4) mg/dL Estim Creat Clear Calc Estimated GFR Random Glucose (60-115) mg/dL Lactic Acid (0.5-2.0) mmol/L Calcium (8.4-10.2) mg/dL Total Bilirubin (0.0-1.0) mg/dL AST (5-37) U/L ALT (0-40) U/L Alkaline Phosphatase (39-117) U/L Troponin I High Sens (<3.5-35.0) ng/L Total Protein (6.5-8.0) g/dL Albumin (3.5-5.0) g/dL Urine Color Yellow Urine Appearance Cloudy Urine pH 5.5 (5.0-9.0) Ur Specific [place] 1.015 (1.005-1.025) Urine Protein 100 (2+) H (Neg-Trace) mg/dL Urine Glucose (UA) Negative (Negative) mg/dL Urine Ketones 15 (Negative) mg/dL Urine Blood Large (3+) H (Negative) Urine Nitrite Negative (Negative) Ur Leukocyte Esterase Negative (Negative) Urine RBC 3-5 H (0-2) /HPF Urine WBC 0-5 (0-5) /HPF Ur Squamous Epith Cells 0-2 (0-2) /HPF Urine Bacteria None Seen (None Seen) Hyaline Casts 0-2 (0-2) /LPF Granular Casts Present Ethyl Alcohol mg/dL Independent Interpretation I performed an independent interpretation of an: EKG and CT Scan Interpretation: Sinus rhythm with first-degree AV block ventricular rate of 69 beats per minute LVH nonspecific T wave changes no acute STT wave changes no acute ischemia Radiology Impression Discussion of test interpretation with radiology: I have reviewed the radiologist's reading. Radiologist Impression: [address] [address] [address] Scan Report Signed Patient: Curtis Simms MR#: [id number] : 1950 Acct:[id number] Age/Sex: 74 / M ADM Date: 08/02/24 Loc: .ED Attending Dr: Ordering Physician: Hussein Melendrez MD Date of Service: 08/03/24 Procedure(s): CT abdomen pelvis wo IV con Accession Number(s): [id number] cc: Physician,Unknown ; Hussein Melendrez MD~ Report Number: [id number]: Total DLP = 776.00 mGy-cm CLINICAL HISTORY: Flank pain CT Abdomen and Pelvis WO Contrast COMPARISON: None FINDINGS: Detail limited by artifacts. Cardiomegaly. Diffusely hypodense liver consistent with hepatic steatosis. Normal spleen. Right renal cyst. Nonobstructing right renal calculus. No visible ureteral calculi. Hyperdense hemorrhagic left renal cyst. No hydronephrosis. Normal adrenal glands. Normal pancreas. Cholelithiasis. No CT evidence of acute cholecystitis. No biliary dilation. No evidence of bowel obstruction or colitis. The appendix is not identified, however, no secondary signs of acute appendicitis. Diffuse bladder wall thickening. Mildly enlarged prostate. No ascites. No pneumoperitoneum. No lymphadenopathy. No acute fracture. Degenerative changes in the spine. No abdominal aortic aneurysm. Atherosclerosis. IMPRESSION: Possible cystitis. Nonemergent/incidental findings above. This document has been electronically signed by: Lalo Bañuelos MD on 08/03/2024 04:51:58 Discharge Plan Discharge Clinical Impression: Acute metabolic encephalopathy, Acute kidney injury Type 2 diabetes mellitus Qualifiers: Diabetes mellitus residential insulin use: without terminal operations manager use Diabetes mellitus complication status: without complication Qualified Code(s): E11.9 - Type 2 diabetes mellitus without complications Patient Disposition: Admitted As Inpatient
[2024-08-03 03:00] LABS: Troponin-I High Sensitivity 79.5 ng/L (<3.5-35.0)
[2024-08-03 03:03] LABS: Alanine Aminotransferase 106 U/L (0-40); Albumin Level 4.1 g/dL (3.5-5.0); Alkaline Phosphatase 69 U/L (39-117); Anion Gap 19 (12-20); Aspartate Amino Transferase 421 U/L (5-37); Bilirubin Total 0.9 mg/dL (0.0-1.0); Blood Urea Nitrogen 56 mg/dL (9-16); Calcium 9.5 mg/dL (8.4-10.2); Carbon Dioxide 19 mmol/L (22-29); Chloride 109 mmol/L (96-108); Estimated Glomerular Filt Rate 19; Glucose Random 107 mg/dL (60-115); Potassium 4.4 mmol/L (3.3-5.1); Sodium 143 mmol/L (135-145); Total Protein 8.1 g/dL (6.5-8.0)
--- NOTE | 2024-08-03 03:03 | ECG_ITS ---
Test Reason : CHEST PAIN Blood Pressure : */* mmHG Vent. Rate : 69 BPM Atrial Rate : 69 BPM P-R Int : 282 ms QRS Dur : 94 ms QT Int : 476 ms P-R-T Axes : 66 -22 191 degrees QTcB Int : 510 ms Sinus rhythm with 1st degree A-V block Moderate voltage criteria for LVH, may be normal variant ( Sokolow-Cho , Jaxon product ) T wave abnormality, consider inferolateral ischemia Prolonged QT Abnormal ECG When compared with ECG of 25-Jul-2013 07:29, T wave amplitude has increased in Anterior leads QT has lengthened Referred By: Hussein Melendrez Electronically Signed By: Rohan Flores
--- NOTE | 2024-08-03 04:16 | PC.NURSE ---
This RN attempted to establish IV line with no success, Dr. Bowden notified. inserted US guided 18 G IV line to R AC.
[2024-08-03] MEDS: 0.9 % Sodium Chloride 1,000 ML 999 ML IV ×2 (04:26→06:21)
--- NOTE | 2024-08-03 04:39 | PC.NURSE ---
Patient is high risk for elopement, elopement band applied to right wrist.
[2024-08-03 04:47] LABS: Lactic Acid 1.9 mmol/L (0.5-2.0)
[2024-08-03 05:32] LABS: Appearance Urine Cloudy; Color Urine Yellow; Glucose Urine UA Negative (Negative); Leukocyte Esterase Urine Negative (Negative); Nitrite Urine Negative (Negative); PH 5.5 (5.0-9.0); Specific Gravity - Urine 1.015 (1.005-1.025); UMIC TRIGGER UACC YES; Urine Blood Large (3+) (Negative); Urine Ketones 15 mg/dL (Negative); Urine Protein 100 (2+) mg/dL (Neg-Trace)
--- NOTE | 2024-08-03 05:38 | P.HPHOSP_ITS ---
History of Present Illness Date of Service: 08/03/24 Chief Complaint: Weakness, confusion This is a 74-year-old male with pertinent history of cognitive impairment, insulin-dependent type 2 diabetes mellitus no longer on insulin, hypertension, not on any prescription home medications who was brought to the emergency department for evaluation of confusion. Patient was seen in the ER 1 day prior to presentation for fall with head strike. Patient is unable to give details about what happened when he was discharged from the ER 1 day prior to presentation. Patient thinks he went home but he was found walking on the street and bystander called EMS as patient looked confused. Patient admits he has not been eating or drinking well for the past few days. He is unclear how the fall happened and unclear if he lost consciousness before the fall. Denies chest pain or palpitations. Patient is only oriented to person and place at the time of my evaluation. States he stopped drinking 45 years ago. Patient states he detoxed himself off of insulin and no longer takes it. He also previously was taking metformin and medications for blood pressure which he does not remember. Unable to obtain complete review of systems. In the emergency department, creatinine found to be 3.2 with BUN 56 Review of Systems 2 Review of Systems: Yes Unobtainable due to mental status PMFSH Medical History Liver cyst Family History Father No problems noted. Mother Myocardial infarct Stroke Surgical History Cardiology follow-up encounter Social History Housing: House Alcohol intake: never Patient Tobacco Use Status: Former Tobacco user Smoked in Last 30 Days: No e-Cigarette/Vaping Use: Never Used Use of substances other than those prescribed or required for medical reasons: No Advance Directives: No Advance Directives Information Provided: Yes Do you have a plan to hurt others: No Plan service: No Current occupational status: retired Meds Allergies Allergy/AdvReac Type Severity Reaction Status Date / Time No Known Allergies Allergy Unknown Verified 08/02/24 22:26 Active Medications: Current Medications Acetaminophen (Acetaminophen 325 Mg Tablet) 650 mg PO Q6H PRN PRN Reason: Pain, Mild 1-3,fever,headache Calcium Carbonate (Calcium Carbonate 750 Mg Tab.Chew) 750 mg PO Q4H PRN PRN Reason: Heartburn Enoxaparin Sodium (Enoxaparin Sodium 30 Mg/0.3 Ml Syringe) 30 mg SUBCUT Q24H [facility] Sodium Chloride (Ns) 1,000 mls @ 999 mls/hr IV .Q1H1M ONE Stop: 08/03/24 06:07 Magnesium Hydroxide (Milk Of Magnesia 30 Ml Oral.Susp) 30 ml PO DAILY PRN PRN Reason: Constipation Melatonin (Melatonin 3 Mg Tablet) 6 mg PO BEDTIME PRN PRN Reason: Insomnia Ondansetron HCl (Ondansetron Hcl 4 Mg/2 Ml Vial) 4 mg IVPUSH Q8H PRN PRN Reason: Nausea and Vomiting Sodium Chloride (0.9 % Sodium Chloride Flush 3 Ml Syringe) 3 ml IVFLUSH QSHIFT [facility] Physical Exam 2 Vital Signs and Narrative: Vital Signs: Last Vital Signs Temp 97.7 F 08/03/24 05:33 Pulse 63 08/03/24 05:33 Resp 14 08/03/24 05:33 BP 148/78 H 08/03/24 05:33 Pulse Ox 97 08/03/24 05:33 O2 Del Method Room Air 08/03/24 05:33 BMI result Body Mass Index 29.3 Middle-aged male lying in bed in no distress Neck supple, no JVD Regular rate and rhythm, S1-S2 heard Regular breath sounds bilaterally, no wheezing or crackles appreciated Abdomen soft nontender, no guarding, no rigidity Patient is awake, alert and oriented x2 ; no focal motor deficit Psych: Normal mood No pedal edema Results Labs 08/03/24 02:29 08/03/24 02:29 Labs: Laboratory Results - last 24 hr 08/03/24 08/03/24 08/03/24 02:28 02:29 04:20 MCV 89.0 MCH 30.5 MCHC 34.2 RDW 13.2 Plt Count 161 D MPV 9.6 Immature Gran % (Auto) 0.5 H Neut % (Auto) 79.4 H Lymph % (Auto) 14.2 L [place] % (Auto) 5.8 Eos % (Auto) 0.0 Baso % (Auto) 0.1 Lymph # (Auto) 1.1 L [place] # (Auto) 0.4 Eos # (Auto) 0.0 Baso # (Auto) 0.0 Abs Immat Gran (auto) 0.04 H Absolute Neuts (auto) 6.0 Absolute Nucleated RBC 0.000 Nucleated RBC % (auto) 0.0 Anion Gap 19 Estim Creat Clear Calc 21.0 Estimated GFR 19 Random Glucose 107 Lactic Acid 1.9 Calcium 9.5 Total Bilirubin 0.9 AST 421 H ALT 106 H Alkaline Phosphatase 69 Total Protein 8.1 H Albumin 4.1 Urine Color Urine Appearance Urine pH Ur Specific [place] Urine Protein Urine Glucose (UA) Urine Ketones Urine Blood Urine Nitrite Ur Leukocyte Esterase Ethyl Alcohol < 10 08/03/24 05:27 MCV MCH MCHC RDW Plt Count MPV Immature Gran % (Auto) Neut % (Auto) Lymph % (Auto) [place] % (Auto) Eos % (Auto) Baso % (Auto) Lymph # (Auto) [place] # (Auto) Eos # (Auto) Baso # (Auto) Abs Immat Gran (auto) Absolute Neuts (auto) Absolute Nucleated RBC Nucleated RBC % (auto) Anion Gap Estim Creat Clear Calc Estimated GFR Random Glucose Lactic Acid Calcium Total Bilirubin AST ALT Alkaline Phosphatase Total Protein Albumin Urine Color Yellow Urine Appearance Cloudy Urine pH 5.5 Ur Specific [place] 1.015 Urine Protein 100 (2+) H Urine Glucose (UA) Negative Urine Ketones 15 Urine Blood Large (3+) H Urine Nitrite Negative Ur Leukocyte Esterase Negative Ethyl Alcohol Assessment and Plan (1) Acute kidney injury: Status: Acute Plan This is a 74-year-old male with pertinent history of insulin-dependent type 2 diabetes mellitus no longer on insulin, hypertension, not on any prescription home medications who was brought to the emergency department for evaluation of confusion. #. Acute kidney injury stage III: Likely prerenal. Monitor creatinine urine output with crystalloid resuscitation. Avoid nephrotoxins. UA pending #. Acute encephalopathy due to uremia in the setting of above: Monitor mentation #. Insulin-dependent diabetes mellitus: Patient states he detoxed himself from insulin and no longer takes it. Glucose within normal limits at the time of admission. Obtaining A1c #. Hypertension: Patient stopped taking prescription antihypertensives. Continue to monitor BP #. Alcohol use disorder: States he was a heavy drinker previously but stopped drinking many years ago. Initiating thiamine and monitor CIWA #. Elevated troponin: Likely type 2 in the setting of increased demand. Patient without chest pain #. Cognitive impairment: Unclear baseline. Maintain sleep-wake cycle Med rec pending DVT prophylaxis: Lovenox Full code. Discussed with patient at bedside Admit as inpatient and will require two night minimum hospital stay for monitoring of kidney function, mentation (as above), which is not possible in a lesser acute setting. Quality Stroke Does the patient have a stroke diagnosis?: No VTE Prior VTE?: No VTE Risk Level:: Medical - moderate - high VTE Device Contraindication: Treatment Not Indicated VTE Drug Contraindication: N/A - Med Ordered
[2024-08-03 05:45] LABS: Bacteria Urine None Seen (None Seen); Granular Casts Urine Present; Hyaline Casts Urine 0-2 /LPF (0-2); Squamous Epithelial Cell Urine 0-2 /HPF (0-2); WBC Urine 0-5 /HPF (0-5)
[2024-08-03] MEDS: Thiamine HCL 200 MG in 0.9 % Sodium Chloride 100 ML 204 MG IV (06:20)
[2024-08-03 06:40] LABS: Troponin-I High Sensitivity 59.2 ng/L (<3.5-35.0)
[2024-08-03] MEDS: Enoxaparin Sodium 30 MG/0.3 ML SYRINGE SUBCUT (07:00)
--- NOTE | 2024-08-03 07:15 | PC.NURSE ---
Resumed care of patient at 0700. he is currently up and eating breakfast. Pt is able to eat his breakfast with no issues, Pt knows where he is, date and time, his name. Pt is still back and forth on other small details of current situation. IVF currently running, pt has elopement band in place, advised to call for help if he needs to get up and use the bathroom. Call patel within reach, awaiting bed assignment. CIWA is negative, pt reporting last drink 45 years ago
[2024-08-03 07:48] LABS: Folate 9.5 ng/mL (> or = 4.0); Vitamin B12 617 pg/mL (200-900)
[2024-08-03 08:09] LABS: Estimated Average Glucose 123 mg/dL; Hemoglobin A1C 133.8263 umol/L; Hemoglobin A1c % 5.9 % (<6.0); Total Hemoglobin (HGBA1C) 3267.7395 umol/L
--- NOTE | 2024-08-03 08:13 | PC.NURSE ---
Pt up and walking to the bathroom with staff, able to be stable on his feet. IVF finished, Pt does not want to be taking PO medication as he does not take anything at home and he does not want to take any medication at this time. Water given to patient. Continues to deny any pain/N/V/D
--- NOTE | 2024-08-03 09:56 | PHA.MEDREC ---
Addendum entered by Katelin Ewing RPh 08/03/24 10:00: REVIEWED BY PAVEL Original Note: Pharmacy Consult ? Medication Reconciliation Pharmacy has completed the medication reconciliation.
--- NOTE | 2024-08-03 13:29 | PC.NURSE ---
Pt report placed for bed assignment. Vitals checked, made aware of BP 170/85. Pt does have history of HTN, but does not take any medications for it. He denies any CP/SOB/PERRIN. Pt is sitting up eating his lunch at this time. No new orders at this time.
--- NOTE | 2024-08-03 13:55 | PM.EVENT ---
Event Note Date of Service: 08/03/24 Event Note: Seen and evaluated Feels better overall, not sure why he is in the hospital , oriented to self and place Start IVF for ASHVIN Amlodipine 5 mg for HTN monitor CIWA nephrolohy consult if no improvement recurrent reorientation follow I\O and BMP Time Spent With Patient Time: Total time managing care of this patient today ____ minutes.
[2024-08-03] MEDS: amLODIPine Besylate 5 MG TABLET PO (14:18)
[2024-08-03] MEDS: 0.9 % Sodium Chloride 1,000 ML 75 ML IVCONT (14:23)
[2024-08-04] MEDS: 0.9 % Sodium Chloride 1,000 ML 75 ML IVCONT ×2 (02:57→16:02)
[2024-08-04] MEDS: Enoxaparin Sodium 30 MG/0.3 ML SYRINGE SUBCUT (05:22)
--- NOTE | 2024-08-04 05:59 | PC.NURSE ---
This Rn assumed care at 1900 last night, pt AOx2, to self and place, pt appears to have difficulty finding words/confused with conversation. Pt was calm and cooperative throughout the night, no apparent distress, report of some back pain, pt boosted in bed with good effect on pain. IVF running Lungs clear, respirations even and non-labored, BSx4, dry skin to feet, abrasion to back of head, no drainage noted, but otherwise skin is intact. Camera in place for safety, call patel within reach, VSS
[2024-08-04 06:26] LABS: MANUAL DIFF FLAG NO
[2024-08-04 06:28] LABS: Basophils Percent Auto 0.4 % (0-2); Eosinophils Percent Auto 0.2 % (0-4); Hematocrit 35.4 % (42.0-52.0); Imm Gran Abs Auto 0.02 X10*3/uL (0.00-0.03); Imm Gran Pct Auto 0.4 % (0.0-0.4); Lymphocytes Absolute Auto 1.6 X10*3/uL (1.2-4.9); Lymphocytes Percent Auto 32.5 % (20-40); Mean Corpuscular HGB Conc 33.9 g/dl (31.0-36.0); Mean Corpuscular Hemoglobin 30.5 pg (27.0-33.0); Mean Corpuscular Volume 90.1 fL (80.0-98.0); Monocytes Absolute Auto 0.4 X10*3/uL (0.1-1.2); Monocytes Percent Auto 8.9 % (2-11); Neutrophils Absolute Auto 2.8 x10*3/uL (2.0-8.3); Neutrophils Percent Auto 57.6 % (45-73); Platelet Count 158 X10*3/uL (160-400); Red Blood Count 3.93 X10*6/uL (4.60-5.80); Red Cell Distribution Width 13.3 % (11.0-16.0); White Blood Count 4.8 X10*3/uL (4.8-10.8)
[2024-08-04 06:45] LABS: Anion Gap 11 (12-20); Blood Urea Nitrogen 52 mg/dL (9-16); Calcium 8.7 mg/dL (8.4-10.2); Carbon Dioxide 22 mmol/L (22-29); Chloride 114 mmol/L (96-108); Creatinine Clr Calc Pharmacy 39.6; Estimated Glomerular Filt Rate 45; Glucose Random 127 mg/dL (60-115); Potassium 4.3 mmol/L (3.3-5.1); Sodium 143 mmol/L (135-145)
[2024-08-04 06:53] LABS: Alanine Aminotransferase 110 U/L (0-40); Albumin Level 3.4 g/dL (3.5-5.0); Alkaline Phosphatase 75 U/L (39-117); Aspartate Amino Transferase 332 U/L (5-37); Bilirubin Direct 0.3 mg/dL (0.0-0.5); Bilirubin Total 0.6 mg/dL (0.0-1.0); Total Protein 6.7 g/dL (6.5-8.0)
[2024-08-04 07:16] VITALS: BP 154/85; PULSE 100; RESP 18; TEMP 36.3; O2SAT 97
[2024-08-04] MEDS: amLODIPine Besylate 5 MG TABLET PO (07:57)
[2024-08-04] MEDS: Thiamine HCL 100 MG TABLET PO (07:57)
--- NOTE | 2024-08-04 09:51 | PM.EVENT ---
Event Note Date of Service: 08/04/24 Event Note: 74 yr old man with ASHVIN in a setting of DM Most likely from hypoperfusion Renal fx is improving Keep I > O Full consult to follow Time Spent With Patient Time: Total time managing care of this patient today ____ minutes.
--- NOTE | 2024-08-04 12:58 | P.PNIM_ITS ---
Subjective Subjective Date of Service: 08/04/24 Interval History: Seen and evaluated this morning feels better overall tolerating PO Cr trending down no reported overnight events Physical Exam 2 Vital Signs: Vital Signs: Last Vital Signs Temp 97.3 F 08/04/24 07:16 Pulse 100 08/04/24 07:16 Resp 18 08/04/24 07:16 BP 154/85 H 08/04/24 07:16 Pulse Ox 97 08/04/24 07:16 O2 Del Method Room Air 08/04/24 07:16 BMI result Body Mass Index 22.5 Const: Other: Constitutional : interactive, not in distress Cardiovascular : no JVP, no lower extremity edema Respiratory : bilateral chest movement, not in resp distress Gastrointestinal: soft, lax, Non tender Skin : Warm, Dry Neurological : Alert & oriented to self and place, No focal deficit Objective Data Active Medications Acetaminophen (Acetaminophen 325 Mg Tablet) 650 mg PO Q6H PRN PRN Reason: Pain, Mild 1-3,fever,headache Amlodipine Besylate (Amlodipine Besylate 5 Mg Tablet) 5 mg PO DAILY [facility]; Protocol Last Admin: 08/04/24 07:57 Dose: 5 mg Documented By: DEEDEE Calcium Carbonate (Calcium Carbonate 750 Mg Tab.Chew) 750 mg PO Q4H PRN PRN Reason: Heartburn Enoxaparin Sodium (Enoxaparin Sodium 30 Mg/0.3 Ml Syringe) 30 mg SUBCUT Q24H [facility] Last Admin: 08/04/24 05:22 Dose: 30 mg Documented By: RAYMUNDO Sodium Chloride (Ns) 1,000 mls @ 75 mls/hr IVCONT .[id number] [facility] Last Admin: 08/04/24 02:57 Dose: 75 mls/hr Documented By: RAYMUNDO Magnesium Hydroxide (Milk Of Magnesia 30 Ml Oral.Susp) 30 ml PO DAILY PRN PRN Reason: Constipation Melatonin (Melatonin 3 Mg Tablet) 6 mg PO BEDTIME PRN PRN Reason: Insomnia Ondansetron HCl (Ondansetron Hcl 4 Mg/2 Ml Vial) 4 mg IVPUSH Q8H PRN PRN Reason: Nausea and Vomiting Sodium Chloride (0.9 % Sodium Chloride Flush 3 Ml Syringe) 3 ml IVFLUSH QSHIFT [facility] Last Admin: 08/04/24 07:58 Dose: Not Given Documented By: DEEDEE Non-Admin Reason: IV Running Thiamine HCl (Thiamine Hcl 100 Mg Tablet) 100 mg PO DAILY [facility] Last Admin: 08/04/24 07:57 Dose: 100 mg Documented By: DEEDEE Labs 08/04/24 05:32 08/04/24 05:32 Labs: Laboratory Results - last 24 hr 08/04/24 05:32 MCV 90.1 MCH 30.5 MCHC 33.9 RDW 13.3 Plt Count 158 L MPV 10.0 Immature Gran % (Auto) 0.4 Neut % (Auto) 57.6 Lymph % (Auto) 32.5 [place] % (Auto) 8.9 Eos % (Auto) 0.2 Baso % (Auto) 0.4 Lymph # (Auto) 1.6 [place] # (Auto) 0.4 Eos # (Auto) 0.0 Baso # (Auto) 0.0 Abs Immat Gran (auto) 0.02 Absolute Neuts (auto) 2.8 Absolute Nucleated RBC 0.000 Nucleated RBC % (auto) 0.0 Anion Gap 11 L Estim Creat Clear Calc 39.6 Estimated GFR 45 Random Glucose 127 H Calcium 8.7 D Total Bilirubin 0.6 Direct Bilirubin 0.3 AST 332 H ALT 110 H Alkaline Phosphatase 75 Total Protein 6.7 Albumin 3.4 L Microbiology Microbiology Results: Microbiology 08/03/24 04:20 Blood Culture - Preliminary Blood - Venous No growth after 24 hours. 08/03/24 04:20 Blood Culture - Preliminary Blood - Venous No growth after 24 hours. Assessment and Plan (1) Acute metabolic encephalopathy: Status: Acute (2) Acute kidney injury: Status: Acute Plan This is a 74-year-old male with pertinent history of insulin-dependent type 2 diabetes mellitus no longer on insulin, hypertension, not on any prescription home medications who was brought to the emergency department for evaluation of confusion. Acute kidney injury on CKD2 Likely prerenal. IV fluids Monitor creatinine urine output Avoid nephrotoxins nephro consulted Acute toxic metabolic encephalopathy Likely due to uremia unclear baseline but sound like he has chronic cognitive impairment Insulin-dependent diabetes mellitus A1c 5.9 Hypertension monitor BP. Started Amlodipine Alcohol use disorder thiamine and monitor CIWA Elevated troponin: Likely type 2 in the setting of increased demand Patient without chest pain or EKG changes to suggest ACS DVT prophylaxis: Lovenox Admit as inpatient and will require overnight minimum hospital stay for monitoring of kidney function, mentation, pending specialist input, which is not possible in a lesser acute setting. Quality Stroke Does the patient have a stroke diagnosis?: No VTE Prior VTE?: No VTE Risk Level:: Medical - moderate - high VTE Device Contraindication: Treatment Not Indicated VTE Drug Contraindication: N/A - Med Ordered
--- NOTE | 2024-08-04 15:01 | MHC.CM.PN ---
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
[2024-08-04 15:12] VITALS: BP 157/76; PULSE 56; RESP 17; TEMP 36; O2SAT 98
[2024-08-04 19:19] VITALS: PULSE 55; RESP 17; TEMP 36.1; O2SAT 98
[2024-08-04 19:20] VITALS: BP 155/76; PULSE 61; RESP 17; TEMP 36.1; O2SAT 99
[2024-08-05] VITALS: BP 140/60; PULSE 54; RESP 18; TEMP 36; O2SAT 98
[2024-08-05] MEDS: 0.9 % Sodium Chloride 1,000 ML 75 ML IVCONT (03:15)
[2024-08-05] MEDS: Enoxaparin Sodium 40 MG/0.4 ML SYRINGE SUBCUT (05:38)
[2024-08-05 06:43] VITALS: BP 170/90; PULSE 60; RESP 16; TEMP 36.1; O2SAT 97
[2024-08-05 06:58] LABS: Anion Gap 10 (12-20); Blood Urea Nitrogen 29 mg/dL (9-16); Calcium 9.1 mg/dL (8.4-10.2); Carbon Dioxide 25 mmol/L (22-29); Chloride 111 mmol/L (96-108); Creatinine Clr Calc Pharmacy 61.7; Estimated Glomerular Filt Rate > 60; Glucose Random 98 mg/dL (60-115); Potassium 4.1 mmol/L (3.3-5.1); Sodium 142 mmol/L (135-145)
[2024-08-05 07:12] VITALS: BP 152/90
[2024-08-05] MEDS: Thiamine HCL 100 MG TABLET PO (08:07)
--- NOTE | 2024-08-05 08:30 | P.CONNP_ITS ---
History of Present Illness Reason for Consult Consult date: 08/05/24 Chief Complaint Chief complaint: Weakness, ASHVIN History of Present Illness Narrative: 7/4 y/o male with a medical history of cognitive impairment, type 2 DM, alcohol abuse (no drink for 45 years per pt) and HTN who does not take any prescribed medication. Presented on 08/03 with confusion, had fallen and hit his head 1 day prior. reportedly not eating or drinking well. Nephrology consulted for ASHVIN. creatinine 3.2 on presentation, prior creatinine a few months earlier was 1.19. creatinine has since been trending down, 08/[address] without hydronephrosis, non-obstructing renal calculi seen. Left hyperdense hemorrhagic renal cyst UA with +protein and blood Patient states he has some pain in left mid back, otherwise doing well denies shortness of breath, chest pain, abdominal pain reports he is urinating regularly and without difficulty; denies blood in urine denies lower extremity swelling Denies known history of kidney problems states he does not see a primary care provider or other doctor outside of the hospital, states he hasn't needed medications after he stopped drinking and taking medication many years ago. Review of Systems Constitutional: Denies headache(s) and Denies malaise Denies headache(s) Cardiovascular: Denies chest pain, Denies leg edema, Denies lightheadedness and Denies dyspnea Respiratory: Denies dyspnea Gastrointestinal: Denies abdominal pain, Denies diarrhea, Denies nausea and Denies vomiting Genitourinary: Denies hematuria, Denies oliguria, Denies dysuria and Denies flank pain Musculoskeletal: Reports back pain and Denies muscle cramps Skin/Breast: Denies rash Denies headache(s) [facility] Past Medical History Medical History Liver cyst Family History Family History Father No problems noted. Mother Myocardial infarct Stroke Surgical History Surgical History Cardiology follow-up encounter Social History Social History Household Members: Family Housing: House Do you presently have visiting nurse or other home services: No Alcohol intake: never Patient Tobacco Use Status: Former Tobacco user e-Cigarette/Vaping Use: Never Used service: No Current occupational status: retired Meds Allergies Allergy/AdvReac Type Severity Reaction Status Date / Time No Known Allergies Allergy Unknown Verified 08/02/24 22:26 Active Medications: Current Medications Acetaminophen (Acetaminophen 325 Mg Tablet) 650 mg PO Q6H PRN PRN Reason: Pain, Mild 1-3,fever,headache Amlodipine Besylate (Amlodipine Besylate 5 Mg Tablet) 5 mg PO DAILY [facility]; Protocol Last Admin: 08/04/24 07:57 Dose: 5 mg Calcium Carbonate (Calcium Carbonate 750 Mg Tab.Chew) 750 mg PO Q4H PRN PRN Reason: Heartburn Enoxaparin Sodium (Enoxaparin Sodium 40 Mg/0.4 Ml Syringe) 40 mg SUBCUT Q24H [facility] Last Admin: 08/05/24 05:38 Dose: 40 mg Magnesium Hydroxide (Milk Of Magnesia 30 Ml Oral.Susp) 30 ml PO DAILY PRN PRN Reason: Constipation Melatonin (Melatonin 3 Mg Tablet) 6 mg PO BEDTIME PRN PRN Reason: Insomnia Ondansetron HCl (Ondansetron Hcl 4 Mg/2 Ml Vial) 4 mg IVPUSH Q8H PRN PRN Reason: Nausea and Vomiting Sodium Chloride (0.9 % Sodium Chloride Flush 3 Ml Syringe) 3 ml IVFLUSH QSHIFT [facility] Last Admin: 08/05/24 08:08 Dose: Not Given Thiamine HCl (Thiamine Hcl 100 Mg Tablet) 100 mg PO DAILY [facility] Last Admin: 08/05/24 08:07 Dose: 100 mg Home Medications ?Medication ?Instructions ?Recorded ?Confirmed ?Last Taken ?Type No Known Home Meds 08/03/24 08/03/24 Unknown History Physical Exam Vital Signs: Last Vital Signs Temp 96.9 F 08/05/24 06:43 Pulse 60 08/05/24 06:43 Resp 16 08/05/24 06:43 BP 152/90 H 08/05/24 07:12 Pulse Ox 97 08/05/24 06:43 O2 Del Method Room Air 08/05/24 06:43 BMI result Body Mass Index 22.5 Const General: no acute distress, alert and awake Resp Effort & Inspection: normal respiratory effort and able to speak in complete sentences Auscultation: clear to auscultation bilaterally Cardio Rate: regular rate Rhythm: regular rhythm Heart sounds: S1 normal heart sound present and S2 normal heart sound present GI Palpation (GI): Soft to palpation and nontender General: Yes no CVA tenderness Back/Spine/Pelvis Back: no CVA tenderness Skin Rashes: no rashes Extrem General: No edema and No pedal edema Results Lab Results 08/04/24 05:32 08/05/24 05:30 Lab results: Chemistry 08/03/24 08/04/24 08/05/24 02:29 05:32 05:30 Sodium 143 143 142 Potassium 4.4 4.3 4.1 Carbon Dioxide 19 L 22 25 BUN 56 H 52 H 29 H Creatinine 3.20 H 1.51 H 0.97 Calcium 9.5 8.7 D 9.1 Hematology 08/03/24 08/04/24 02:29 05:32 WBC 7.6 4.8 Hgb 12.7 L 12.0 L Plt Count 161 D 158 L Urinalysis 08/03/24 05:27 Urine Color Yellow Urine Appearance Cloudy Urine pH 5.5 Ur Specific [place] 1.015 Urine Protein 100 (2+) H Urine Glucose (UA) Negative Urine Ketones 15 Urine Blood Large (3+) H Urine Nitrite Negative Ur Leukocyte Esterase Negative Urine RBC 3-5 H Urine WBC 0-5 Ur Squamous Epith Cells 0-2 Hyaline Casts 0-2 Assessment and Plan (1) Acute kidney injury: Status: Acute (2) HTN (hypertension): Qualifiers: Hypertension type: essential hypertension Qualified Code(s): I10 - Essential (primary) hypertension Status: Acute (3) Acute metabolic encephalopathy: Status: Acute Plan ASHVIN secondary to hypoperfusion from poor PO intake prior to hospitalization improving renal function is normalizing with hydration blood pressure is suboptimally controlled, will add 5mg lisinopril PO daily to regimen. continue amlodipine 5mg PO daily. recommend monitoring I&O, regular blood pressure checks monitor daily electrolyte and renal function studies continue supportive care we will arrange for outpatient follow up to monitor blood pressure control and follow up on abnormal UA Discussed with Dr Ewelina Aguilar Date of Service Date of Service: 08/05/24
[2024-08-05 11:48] VITALS: BP 142/72; PULSE 69
[2024-08-05] MEDS: lisinopriL 5 MG TABLET PO (11:50)
--- NOTE | 2024-08-05 12:31 | MHC.CM.PN ---
Addendum entered by Lissette Sims RN 08/05/24 12:51: BED OFFER ACCEPTED @ [facility] FOR TOMORROW. Original Note: PATIENT COMPLETED HCP NAMING HIS SISTER, BEBO, [facility]. PT REC STR. REFERRALS SENT VIA [facility]. AWAITING BED OFFER.
--- NOTE | 2024-08-05 14:42 | HO.WOUND ---
Wound Consult: Initial 74yr old?male admitted to [facility] on 08/03/24 - See progress notes and H&P for detailed history.? Wound consult placed for Bilateral Plantar Feet.? Patient agreeable to assessment and photo documentation.? Bilateral feet assessed for intact tissue - no redness noted - no PI noted. tissue remains intact at this time. Bilateral Plantar feet noted for thickened dry flaking skin. Loosly lifting areas removed with washing. Recommend humectant cream such as a cream with urea in it to soften thickened skin. Inpatient recommend vaseline application and sock application daily. Right Plantar foot Left Plantar foot Patient will benefit from Podiatry outpt follow up. Recommendations: 1. Bilateral Plantar feet - Cleanse with PH balanced wipes, pat dry. Apply Vaseline to feet, cover with socks to prevent slipping. Apply Daily. Re-consult wound care Nurse for wound deterioration or wound changes.
[2024-08-05 15:39] VITALS: BP 143/77; PULSE 66; RESP 18; TEMP 36.2; O2SAT 98
--- NOTE | 2024-08-05 16:40 | P.PNIM_ITS ---
Subjective Subjective Date of Service: 08/05/24 Interval History: Seen and evaluated this morning feels better overall tolerating PO Cr went to baseline no reported overnight events Review of Systems Review of Systems: Yes all other systems are reviewed and are negative Physical Exam 2 Vital Signs: Vital Signs: Last Vital Signs Temp 97.1 F 08/05/24 15:39 Pulse 66 08/05/24 15:39 Resp 18 08/05/24 15:39 BP 143/77 H 08/05/24 15:39 Pulse Ox 98 08/05/24 15:39 O2 Del Method Room Air 08/05/24 15:39 BMI result Body Mass Index 22.5 Const: Other: Constitutional : interactive, not in distress Cardiovascular : no JVP, no lower extremity edema Respiratory : bilateral chest movement, not in resp distress Gastrointestinal: soft, lax, Non tender Skin : Warm, Dry Neurological : Alert & oriented to self and place, No focal deficit Objective Data Active Medications Acetaminophen (Acetaminophen 325 Mg Tablet) 650 mg PO Q6H PRN PRN Reason: Pain, Mild 1-3,fever,headache Amlodipine Besylate (Amlodipine Besylate 5 Mg Tablet) 5 mg PO DAILY [facility]; Protocol Last Admin: 08/05/24 09:54 Dose: Not Given Documented By: SRIDEVI Non-Admin Reason: Patient Refused Comments: Dr. Davis aware. Calcium Carbonate (Calcium Carbonate 750 Mg Tab.Chew) 750 mg PO Q4H PRN PRN Reason: Heartburn Enoxaparin Sodium (Enoxaparin Sodium 40 Mg/0.4 Ml Syringe) 40 mg SUBCUT Q24H [facility] Last Admin: 08/05/24 05:38 Dose: 40 mg Documented By: MARISEL Lisinopril (Lisinopril 5 Mg Tablet) 5 mg PO DAILY [facility]; Protocol Last Admin: 08/05/24 11:50 Dose: 5 mg Documented By: SRIDEVI Magnesium Hydroxide (Milk Of Magnesia 30 Ml Oral.Susp) 30 ml PO DAILY PRN PRN Reason: Constipation Melatonin (Melatonin 3 Mg Tablet) 6 mg PO BEDTIME PRN PRN Reason: Insomnia Ondansetron HCl (Ondansetron Hcl 4 Mg/2 Ml Vial) 4 mg IVPUSH Q8H PRN PRN Reason: Nausea and Vomiting Sodium Chloride (0.9 % Sodium Chloride Flush 3 Ml Syringe) 3 ml IVFLUSH QSHIFT [facility] Last Admin: 08/05/24 16:16 Dose: Not Given Documented By: SRIDEVI Non-Admin Reason: Previously Administered Thiamine HCl (Thiamine Hcl 100 Mg Tablet) 100 mg PO DAILY [facility] Last Admin: 08/05/24 08:07 Dose: 100 mg Documented By: SRIDEVI Labs 08/04/24 05:32 08/05/24 05:30 Labs: Laboratory Results - last 24 hr 08/05/24 05:30 Hold Purple Top SEE NOTE Anion Gap 10 L Estim Creat Clear Calc 61.7 Estimated GFR > 60 Random Glucose 98 Calcium 9.1 Microbiology Microbiology Results: Microbiology 08/03/24 04:20 Blood Culture - Preliminary Blood - Venous No growth after 48 hours. 08/03/24 04:20 Blood Culture - Preliminary Blood - Venous No growth after 48 hours. Assessment and Plan (1) Acute metabolic encephalopathy: Status: Acute (2) Acute kidney injury: Status: Acute (3) Cognitive decline: Status: Acute Plan This is a 74-year-old male with pertinent history of insulin-dependent type 2 diabetes mellitus no longer on insulin, hypertension, not on any prescription home medications who was brought to the emergency department for evaluation of confusion. Acute kidney injury on CKD2 Likely prerenal. IV fluids Monitor creatinine urine output Avoid nephrotoxins nephro following Acute toxic metabolic encephalopathy improved back to baseline Cognitive impairment, chronic CT Head Diffuse cortical volume loss. Nonspecific white matter hypodensities, most commonly associated with chronic microangiopathic changes. MOCA score of 16 HCP invoked could be related to unspecified dementia Insulin-dependent diabetes mellitus A1c 5.9 Hypertension Started Amlodipine and Lisinopril , he refused medications often Alcohol use disorder thiamine and monitor CIWA Elevated troponin: Likely type 2 in the setting of increased demand Patient without chest pain or EKG changes to suggest ACS DVT prophylaxis: Lovenox Admit as inpatient and will require overnight hospital stay for monitoring of kidney function, mentation, and safe discharge plan which is not possible in a lesser acute setting. Quality Stroke Does the patient have a stroke diagnosis?: No VTE Prior VTE?: No VTE Risk Level:: Medical - moderate - high VTE Device Contraindication: Treatment Not Indicated VTE Drug Contraindication: N/A - Med Ordered
[2024-08-05] MEDS: 0.9 % Sodium Chloride Flush 3 ML SYRINGE IVFLUSH (22:22)
[2024-08-05 23:40] VITALS: PULSE 58; RESP 17; TEMP 36.3; O2SAT 96
[2024-08-06 00:18] VITALS: BP 194/80
--- NOTE | 2024-08-06 00:24 | PC.NURSE ---
Addendum entered by CHRISTINA Dorsey 08/06/24 00:45: Dr. Valles ordered 1x dose hydralazine 20mg IV push. medication administered. Original Note: patient has been resting in bed quietly. for midnight vitals his manual BPs 194/80 right arm & 192/94 left arm. per MAR patient did decline his daily amlodipine and seems to have a history of declining BP meds. Dr. Valles notified & aware of high BPs.
[2024-08-06] MEDS: hydrALAZINE HCl 20 MG/ML VIAL IVPUSH (00:41)
[2024-08-06 01:19] VITALS: BP 130/64
[2024-08-06 07:08] VITALS: BP 148/72; PULSE 58; RESP 14; TEMP 36.8; O2SAT 97
[2024-08-06] MEDS: Thiamine HCL 100 MG TABLET PO (07:58)
[2024-08-06] MEDS: 0.9 % Sodium Chloride Flush 3 ML SYRINGE IVFLUSH (07:59)
--- NOTE | 2024-08-06 09:09 | P.PNNP_ITS ---
Subjective Subjective Date of Service: 08/06/24 Interval history: 74 y/o male with a medical history of cognitive impairment, type 2 DM, alcohol abuse and HTN who does not take any prescribed medication. Presented on 08/03 with confusion, had fallen and hit his head 1 day prior. reportedly not eating or drinking well. Nephrology consulted for ASHVIN. creatinine 3.2 on presentation, prior creatinine a few months earlier was 1.19. creatinine has since been trending down, 08/[address] without hydronephrosis, non-obstructing renal calculi seen. Left hyperdense hemorrhagic renal cyst UA with +protein and blood Patient denies back/flank pain denies shortness of breath, chest pain, abdominal pain reports he is urinating regularly and without difficulty; denies blood in urine denies lower extremity swelling Physical Exam 2 Vital Signs: Vital Signs: Last Vital Signs Temp 98.2 F 08/06/24 07:08 Pulse 58 08/06/24 07:08 Resp 14 08/06/24 07:08 BP 148/72 H 08/06/24 07:08 Pulse Ox 97 08/06/24 07:08 O2 Del Method Room Air 08/06/24 07:08 BMI result Body Mass Index 22.5 Const: General: no acute distress, alert and awake Resp: Effort & Inspection: normal respiratory effort and able to speak in complete sentences Auscultation: clear to auscultation bilaterally Cardio: Rate: regular rate Rhythm: regular rhythm Heart sounds: S1 normal heart sound present and S2 normal heart sound present GI: Palpation (GI): Soft to palpation and nontender : General: Yes no CVA tenderness Back/Spine/Pelvis: Back: no CVA tenderness Skin: Rashes: no rashes Extrem: General: No edema and No pedal edema Objective Data Labs 08/04/24 05:32 08/05/24 05:30 Microbiology Microbiology Results: Microbiology 08/03/24 04:20 Blood - Venous Blood Culture - Preliminary No growth after 48 hours. 08/03/24 04:20 Blood - Venous Blood Culture - Preliminary No growth after 48 hours. Procedures Date of Service Date of Service: 08/06/24 Assessment & Plan Assessment and plan (1) Acute metabolic encephalopathy: Status: Acute (2) Acute kidney injury: Status: Acute (3) HTN (hypertension): Status: Acute Plan ASHVIN secondary to hypoperfusion from poor PO intake prior to hospitalization improving renal function has normalized with hydration blood pressure is suboptimally controlled as patient is refusing to take oral blood pressure medications- discussed importance of blood pressure control and risks of uncontrolled hypertension with patient. will discontinue amlodipine and increase lisinopril to 10mg daily recommend monitoring I&O, regular blood pressure checks monitor daily electrolyte and renal function studies continue supportive care we will arrange for outpatient follow up to monitor blood pressure control and follow up on abnormal UA Discussed with Dr Hansen Time Spent With Patient Time: Total time managing care of this patient today ____ minutes. Progress Note: Quality Stroke Does the patient have a stroke diagnosis?: No
--- NOTE | 2024-08-06 10:39 | MHC.CM.PN ---
Per MD patient medically cleared for dc to [facility] @ [facility]. S transport scheduled for 1230. LM for HCP to inform of dc. RN aware.
--- NOTE | 2024-08-06 10:41 | P.DS_ITS ---
DS: Providers Provider Date of Service: 08/06/24 Date of admission: 08/03/24 05:35 Date of discharge: 08/06/24 Primary care physician: Jaron Palencia PA-C Consults: 08/03/24 13:59 Consult to Nephrology Routine Consulting Provider: [facility] Reason for consultation: ASHVIN for eval and rec. 08/03/24 14:13 Consult to Wound Care Routine Reason for consultation: dry sloughy skin to bottoms of feet Has provider been notified: Yes DS: Diagnosis Discharge Diagnosis (1) Acute metabolic encephalopathy: Status: Acute (2) Acute kidney injury: Status: Acute (3) HTN (hypertension): Status: Acute (4) Cognitive decline: Status: Acute DS: Summary Hospital Course Hospital Course: Admission note HPI This is a 74-year-old male with pertinent history of cognitive impairment, insulin-dependent type 2 diabetes mellitus no longer on insulin, hypertension, not on any prescription home medications who was brought to the emergency department for evaluation of confusion. Patient was seen in the ER 1 day prior to presentation for fall with head strike. Patient is unable to give details about what happened when he was discharged from the ER 1 day prior to presentation. Patient thinks he went home but he was found walking on the street and bystander called EMS as patient looked confused. Patient admits he has not been eating or drinking well for the past few days. He is unclear how the fall happened and unclear if he lost consciousness before the fall. Denies chest pain or palpitations. Patient is only oriented to person and place at the time of my evaluation. States he stopped drinking 45 years ago. Patient states he detoxed himself off of insulin and no longer takes it. He also previously was taking metformin and medications for blood pressure which he does not remember. Unable to obtain complete review of systems. In the emergency department, creatinine found to be 3.2 with BUN 56 Hospital course # Acute kidney injury on CKD2 Likely prerenal. Improved back to normal baseline with IV fluids as he was evaluated by nephrology who will follow up with him as outpatient. # Acute toxic metabolic encephalopathy. likely related to acute renal failure. improved back to baseline which is altered as well. needs to avoid alcohol and follow with Neurology outpatient. # Cognitive impairment, chronic. CT Head Diffuse cortical volume loss. Nonspecific white matter hypodensities, most commonly associated with chronic microangiopathic changes that might explain partially his congnitive decline. MOCA score of 16. HCP invoked during hospital stay. could be related to unspecified dementia or alcohol related complications. # Insulin-dependent diabetes mellitus. HbA1c 5.9. not on any medications now. diabetic diet. # Hypertension, uncontrolled. Started Amlodipine and Lisinopril. refused to take his medications on occasions. Follow BP with nephrology and PCP as outpatient. # Reported Alcohol use disorder. thiamine supplement given and monitored CIWA with no signs of withdrawal. To continue Thiamine on discharge. Discharge plan Start Amlodipine and Lisinopril for blood pressure control Follow with nephrology as outpatient The patient will likely need less than 30 days of SNF stay. Time Attestation Discharge Coordination Time (in mins): 41 Quality: Safe Use of Opioids Does Pt have an Active Cancer Diagnosis on the Problem List?: No Quality: Stroke Does the patient have a stroke diagnosis?: No Physical Exam Vital Signs: Vital Signs: Last Vital Signs Temp 98.2 F 08/06/24 07:08 Pulse 58 08/06/24 07:08 Resp 14 08/06/24 07:08 BP 148/72 H 08/06/24 07:08 Pulse Ox 97 08/06/24 07:08 O2 Del Method Room Air 08/06/24 07:08 BMI result Body Mass Index 22.5 Const: Other: Constitutional : interactive, not in distress Cardiovascular : no JVP, no lower extremity edema Respiratory : bilateral chest movement, not in resp distress Gastrointestinal: soft, lax, Non tender Skin : Warm, Dry Neurological : Alert & oriented to self and place, No focal deficit DS: Data Data Completed and Pending Labs on day of discharge: Preliminary micro results at discharge 08/03/24 04:20 Blood Culture - Preliminary Blood - Venous No growth after 48 hours. 08/03/24 04:20 Blood Culture - Preliminary Blood - Venous No growth after 48 hours. Discharge Plan Discharge Anticipated Discharge Date/Time: 08/06/24 10:34 Patient Disposition: Xfer SNF Discharge Diagnosis: Cognitive impairment Referrals: [facility] [Outside] - 1 Day (short term rehab) Jaron Palencia PA-C [Primary Care Provider] - 1 Week Discharge Medications: New amlodipine 5 mg Tablet 5 mg PO DAILY Qty: 90 0RF Protocol: Hold for SBP< HOLD for SBP < : 90 lisinopril 5 mg Tablet 5 mg PO DAILY Qty: 90 0RF Protocol: Hold for SBP< HOLD for SBP < : 90 thiamine mononitrate (vit B1) 100 mg Tablet 100 mg PO DAILY Qty: 90 0RF Discharge Orders: Discharge Order (Routine); Ordered 08/06/24 Ordered By: Jake Davis Diet: Diabetic diet Activity on Discharge: As tolerated Stand Alone Forms: Patient Portal Discharge page Print Language: Estonian Care Plan Goals: Start Amlodipine and Lisinopril for blood pressure control Follow with nephrology as outpatient Health Concerns: Kidney injury Plan of Treatment: Nephrology follow up Assessment: as above
[2024-08-06 11:53] VITALS: BP 112/59; PULSE 75; RESP 16; TEMP 36.7; O2SAT 95
== END 2024-08-06 12:59 | disposition skilled nursing facility (03) | DRG 682 ==
LOC: HO.ED 08-03 05:15 → HO.EDOVER 08-03 05:38 → HO.S3 08-03 13:03
PROVIDERS: Admitting Provider Student in an Organized Health Care Education/Training Program; Emergency Provider Internal Medicine; PCP Physician Assistant; Visit Provider Student in an Organized Health Care Education/Training Program
DX: N17.9 Acute kidney failure, unspecified (principal); G92.8 Other toxic encephalopathy; I12.9 Hypertensive chronic kidney disease with stage 1 through stage 4 chronic kidney disease, or unspecified chronic kidney disease; N20.0 Calculus of kidney; N28.1 Cyst of kidney, acquired; N18.2 Chronic kidney disease, stage 2 (mild); R41.9 Unspecified symptoms and signs involving cognitive functions and awareness; F10.11 Alcohol abuse, in remission; E11.22 Type 2 diabetes mellitus with diabetic chronic kidney disease; Z87.891 Personal history of nicotine dependence
CPT/HCPCS: 36415; 70450; 71045; 72125; 74176; 80048; 80053; 80076; 80307; 81001; 82607; 82746; 82947; 83036; 83605; 84484; 85025; 87040; 90715; 93005; 97116; 97162; 97166; 99283; 99285; J0360; J1650; J3411

== ENCOUNTER → 2024-08-03 03:03 | Outpatient (BNV) | payer MEDICARE, SELFPAY | PROVIDERS: Emergency Provider Internal Medicine; Visit Provider Radiology Diagnostic Radiology | DX: R10.9 Unspecified abdominal pain (principal); R51.9 Headache, unspecified; R07.9 Chest pain, unspecified | CPT/HCPCS: 70450; 71045; 74176 ==

== ENCOUNTER → 2024-08-03 03:03 | Outpatient (BNV) | payer MEDICARE, SELFPAY | PROVIDERS: Admitting Provider Student in an Organized Health Care Education/Training Program; Emergency Provider Internal Medicine; PCP Physician Assistant; Visit Provider Internal Medicine Cardiovascular Disease | DX: I44.0 Atrioventricular block, first degree (principal); I45.81 Long QT syndrome | CPT/HCPCS: 93010 ==

== ENCOUNTER → 2024-08-03 05:35 | Outpatient (BNV) | payer MEDICARE, SELFPAY | PROVIDERS: Admitting Provider Student in an Organized Health Care Education/Training Program; Emergency Provider Internal Medicine; PCP Physician Assistant; Visit Provider Nurse Practitioner Family | DX: G93.41 Metabolic encephalopathy (principal); N17.9 Acute kidney failure, unspecified; I10 Essential (primary) hypertension | CPT/HCPCS: 99222; 99231; 99499 ==

== ENCOUNTER → 2024-08-03 05:35 | Outpatient (BNV) | payer MEDICARE, SELFPAY | PROVIDERS: Admitting Provider Student in an Organized Health Care Education/Training Program; Emergency Provider Internal Medicine; Visit Provider Student in an Organized Health Care Education/Training Program | DX: G93.41 Metabolic encephalopathy (principal); N17.9 Acute kidney failure, unspecified | CPT/HCPCS: 99223; 99232; 99233; 99239; 99499 ==

== ENCOUNTER → 2025-02-07 08:26 | Outpatient (BNVA) | payer MEDICARE, SELFPAY | PROVIDERS: PCP Physician Assistant | DX: I10 Essential (primary) hypertension (principal) | CPT/HCPCS: 99211 ==